=== PATIENT | male | born 1995 | race Caucasian/White ===

== ENCOUNTER 2024-03-03 10:39 | Outpatient (REF) | payer OTHER, SELFPAY ==
--- NOTE | ~2024-03-03 | XR_ITS ---
EXAMINATION: XR THORACIC SPINE CLINICAL INFORMATION: Pain in thoracic spine COMPARISON: None available. TECHNIQUE: AP and lateral views of thoracic spine FINDINGS: There is no fracture or bone destruction seen and the vertebral alignment is normal. There is no disc space narrowing. There is no abnormality of the paraspinal soft tissues. XR/XR thoracic spine 2V IMPRESSION: Unremarkable examination. Electronically signed by: Elsie Gama MD 03/19/2024 06:30 PM EDT
--- NOTE | ~2024-03-03 | XR_ITS ---
EXAMINATION: XR KNEE, RIGHT CLINICAL INFORMATION: 28-year-old male with pain in right knee COMPARISON: None available. TECHNIQUE: Four views of the right knee. FINDINGS: No fracture or joint effusion. Alignment is anatomic. Joint spaces are maintained. No abnormal soft tissue calcification. XR/XR knee RT 3V IMPRESSION: Normal right knee. Electronically signed by: Elsie Gama MD 03/19/2024 06:06 PM EDT
--- NOTE | ~2024-03-03 | XR_ITS ---
EXAMINATION: XR HIP, RIGHT CLINICAL INFORMATION: Pain in the right hip COMPARISON: None available. TECHNIQUE: Two views of the right hip. FINDINGS: No fracture. Alignment is anatomic. Hip joint space is maintained. Soft tissues are unremarkable. XR/XR hip RT min 2V IMPRESSION: Normal right hip. Electronically signed by: Elsie Gama MD 03/19/2024 06:29 PM EDT
--- NOTE | ~2024-03-03 | XR_ITS ---
EXAMINATION: XR SHOULDER, RIGHT CLINICAL INFORMATION: Pain in right shoulder COMPARISON: None available. TECHNIQUE: AP external rotation, Grashey, scapular Y, and axillary views of the right shoulder. FINDINGS: The bones and soft tissues are normal. No fracture. Glenohumeral and acromioclavicular alignment is anatomic with normal joint space. No abnormal soft tissue calcifications. XR/XR shoulder RT min 2V IMPRESSION: Normal right shoulder. Electronically signed by: Elsie Gama MD 03/19/2024 06:29 PM EDT RP
--- NOTE | ~2024-03-03 | XR_ITS ---
EXAMINATION: XR LUMBOSACRAL SPINE CLINICAL INFORMATION: Back pain COMPARISON: None available. TECHNIQUE: Three views of the lumbosacral spine. FINDINGS: The vertebral bodies and posterior elements are normal. There is straightening of lumbar lordosis likely result of muscle spasm. The disc spaces are preserved and the vertebral alignment is normal. The paraspinal soft tissues are normal. XR/XR lumbar spine 2-3V IMPRESSION: Muscle spasm Electronically signed by: Elsie Gama MD 03/19/2024 06:28 PM EDT
== END 2024-03-03 10:40 | disposition home or self-care (01) ==
LOC: HO.XRAY 10:39
PROVIDERS: PCP Family Medicine; Visit Provider Physician Assistant
DX: M25.551 Pain in right hip (principal); M25.561 Pain in right knee; M54.50 Low back pain, unspecified; M54.6 Pain in thoracic spine; M25.511 Pain in right shoulder; M25.50 Pain in unspecified joint; R14.0 Abdominal distension (gaseous); R10.11 Right upper quadrant pain; K13.0 Diseases of lips; G44.52 New daily persistent headache (NDPH)
CPT/HCPCS: 72070; 72100; 73030; 73502; 73562; 96127; 99202

== ENCOUNTER 2024-03-03 10:39 | Outpatient (AMB) | payer OTHER, SELFPAY ==
--- NOTE | 2024-03-03 10:41 | MHC.PC.OV ---
Vital Signs 03/03/24 10:45 Height 5 ft 5.55 in Weight 159 lb 8 oz BMI 26.1 BP 112/72 Blood Pressure Location Rt brachial Position Sitting Respiration 12 Pulse 67 Pulse Source Pulse Oximeter Temp 98.4 F Pulse Oximetry (%) 97 Oxygen Delivery Method Room Air Intake Visit Reasons: Est. Care Intake Note: New patient visit Allergies No Known Allergies Allergy (Verified 03/03/24 10:43) Medication List - Last Reconciled 03/03/24 by Pati Perdue PA-C No Known Home Meds Tobacco use date assessed: 03/03/24 Dental Screening Dental Screen Date: 03/03/24 Did you have a dental visit in the last 12 months?: Yes Did you have a dental problem in the last 6 months where you did not have access to dental care?: No Was dental information given to patient?: Patient has dentist HPI Est. Care HPI Details Patient is a 28-year-old male who presents today to [facility]. He is transferring from [place]. He has a hx of lumbar pain, thoracic pain and bilateral plantar fasctiitis. He brought in a list of concerns today. He states they are mostly musculoskeletal. He complains of right knee pain in the posterior aspect. He states that started about 4 months ago. He states the pain comes and goes. It does not seem to be improved by rest or stretching. He states the pain is sharp and stabbing. No injury. No swelling. No previous surgery. No instability. He sometimes gets pain on the lateral aspect of the right knee as well. He states if he does any cardio longer than 1 mile he gets the pain. Stretching is somewhat helpful but then the pain will linger the following day. It does not feel like it comes from the hip. He does report right hip popping sound. No pain with it. He complains of right shoulder cracking and popping at time. Pushups make it worse. No fam hx of lupus, RA, OA. No tick bites. He states that he wakes up feeling bloating. No difficulty swallowing, no diarrhea or constipation. He does get sometimes get RUQ pain after a meal. No hx of abdominal surgeries. No n/v. He complains of daily headaches. He states that the headaches are mostly in the front of his head. It happens as the day goes on. She does not wake up with them. He states that he sleeps through the night and gets a full 7 hours of sleep. He denies any caffeine changes. No new medications or supplements. He is well hydrated. This has been going on for the last 3-4 months. No dizziness with it. Overdue for an eye exam. 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 No numbness, tingling or weakness. No nausea or vomiting. Complains today of a lip lesion that has been there for about 3 or 4 months. It is unchanged in size. States that it is just a small bump on the right lower lip. [facility] Family History (Updated 03/03/24 @ 12:15 by Rebekah Oakley CMA) Father Diabetes Social History Housing: Apartment Patient Tobacco Use Status: Never used Tobacco e-Cigarette/Vaping Use: Never Used Second Hand Smoke Exposure: No service: Yes Current occupational status: employed Current occupation: [employer] Current occupational exposures/hazards: No Cognitive needs: No Hearing needs: No Vision needs: No Questionnaire PHQ-9 Over the last 2 weeks, how often have you been bothered by any of the following problems? 1. Little interest or pleasure in doing things: not at all 2. Feeling down, depressed, or hopeless: not at all 3. Trouble falling or staying asleep, or sleeping too much: not at all 4. Feeling tired or having little energy: several days 5. Poor appetite or overeating: not at all 6. Feeling bad about yourself - or that you are a failure or have let yourself or your family down: not at all 7. Trouble concentrating on things, such as reading the newspaper or watching television: not at all 8. Moving or speaking so slowly that other people could have noticed. Or the opposite - being so fidgety or restless that you have been moving around a lot more than usual: not at all 9. Thoughts that you would be better off or of hurting yourself in some way: not at all Total score: 1 Depression Screening Interpretation: Negative Depression Screening Done: Yes 59537 - PHQ-9 Billing: Yes Source: Developed by Drs. Eugenio Sim, Maria Fernanda Best, Xavier Abdi and colleagues, with an educational mae from [employer]. Thrive Questionnaire Date Thrive assessed: 03/03/24 I am a: Patient What is your living situation today?: I have a steady place to live Within the past 12 months, did the food you bought not last and you didn't have the money to get more?: Never true Within the past 12 months, did you worry whether your food would run out before you got money to buy more?: Never true Do you have trouble paying for medicines?: No Do you have trouble getting transportation to medical appointments?: No Do you have trouble paying your heating and electricity bill?: No Do you have trouble taking care of your child, family member or friend?: No Do you have trouble with day-to-day activities such as bathing, preparing meals, shopping, managing finances, etc.?: No Are you currently unemployed and looking for a job?: No Are you interested in more education?: Yes Please select the resources that you would like help with: None Currently or been in a relationship where the following occur: No concerns reported THRIVE Score: 0 AUDIT C Alcohol Use Questionnaire (AUDIT-C) 1. How often do you have a drink containing alcohol?: Monthly or less 2. How many drinks containing alcohol do you have on a typical day when you are drinking?: 1 or 2 3. How often do you have six or more drinks on one occasion?: Never Total Score: 1 LENNY-7 AMB Questionnaire LENNY-7 Date LENNY - 7 assessed: 03/03/24 Feeling nervous, anxious, or on edge: 0 = Not at all Not being able to stop or control worryin = Not at all Worrying too much about different things: 0 = Not at all Trouble relaxin = Several days Being so restless that it is hard to sit still: 0 = Not at all Feeling afraid as if something awful might happen: 0 = Not at all Source: Developed by Drs. Eugenio Sim, Maria Ferannda Best, Xavier Abdi and colleagues, with an educational mae from [employer]. LENNY-7 Assessment Billing LENNY-7 Assessment Tool: LENNY-7 Assessment 44495 Physical exam (Primary Care) Vital Signs: Last Vital Signs Temp 98.4 F 03/03/24 10:45 Pulse 67 03/03/24 10:45 Resp 12 03/03/24 10:45 BP 112/72 03/03/24 10:45 Pulse Ox 97 03/03/24 10:45 Oxygen Delivery Method Room Air 03/03/24 10:45 BMI result Body Mass Index 26.1 Tobacco/Smoking Status: Tobacco use Status Tobacco use date assessed 03/03/24 03/03/24 10:47 Patient Tobacco Use Status Never used Tobacco 03/03/24 10:47 e-Cigarette/Vaping Use Never Used 03/03/24 10:47 PHQ-9: PHQ-9 Score PHQ-9: Total score 1 03/03/24 12:13 Depression Screening Interpretation: Negative Thrive Assessment: Date of Thrive Assessment Date Thrive assessed 03/03/24 03/03/24 12:13 Currently or been in a relationship where the following occur: No concerns reported Const Orientation/consciousness: patient oriented x3 HENMT Ears: hearing grossly normal bilaterally and TM's normal bilaterally General nose exam: No nasal polyps present Face and sinus: Yes sinuses nontender Mouth: Normal oral and palatal mucosa present Eyes Pupils: Equal, round and reactive pupils present EOM: EOMs intact bilaterally Neck Neck: Yes full ROM and Yes no lymphadenopathy Thyroid: Thyroid normal Chest Chest palpation & inspection: normal inspection of the chest Resp Auscultation: clear to auscultation bilaterally Cardio Rate: regular rate Rhythm: regular rhythm Heart sounds: S1 normal heart sound present and S2 normal heart sound present Peripheral pulses: Peripheral pulses 2+ throughout GI Other: Soft, nontender Auscultation: normal bowel sounds Rectal Exam - Male: Yes deferred General: Yes no CVA tenderness Back/Spine/Pelvis Other: Nontender Back: no CVA tenderness Cervical Spine: cervical ROM normal Thoracic/Lumbar Spine: thoracic and lumbar spine normal to inspection, thoraco-lumbar ROM normal and straight leg raise negative bilaterally Skin Other: There is a flesh-colored, small, half a pea-sized raised lesion noted on the right lower lip. General skin exam: no rashes or lesions noted Neuro General: patient oriented x3, gait normal, CN's II-XI intact bilaterally and deep tendon reflexes 2+ bilaterally Cranial nerves: Yes Equal, round and reactive pupils present Motor exam (neuro): 5/5 motor strength present throughout Sensory Exam: double simultaneous stimulation for sensation normal Coordination: [id number] test normal and Romberg test negative Extrem General: Yes normal to inspection and Yes full ROM Psych Affect: normal affect Attitude: cooperative Thought process: Normal thought process present Thought content: Normal thought content present Insight: Good insight present (Psych) Judgement: Good judgement present (Psych) Assessment and Plan Assessment & Plan (1) Right hip pain: Code(s): M25.551 - Pain in right hip Plan: xrays ordered referral to chiro and ortho (2) Right knee pain: Code(s): M25.561 - Pain in right knee Plan: as above (3) Lumbar pain: Code(s): M54.50 - Low back pain, unspecified Plan: as above (4) Thoracic back pain: Code(s): M54.6 - Pain in thoracic spine Plan: as above (5) Right shoulder pain: Code(s): M25.511 - Pain in right shoulder Plan: as above (6) Polyarthralgia: Code(s): M25.50 - Pain in unspecified joint Plan: labs and imaging ordered will follow up pending results (7) Abdominal bloating: Code(s): R14.0 - Abdominal distension (gaseous) Plan: u/s ordered labs ordered abdominal exam reassuring. warning signs of abdominal pain that would require emergent medical treatment discussed (8) RUQ pain: Code(s): R10.11 - Right upper quadrant pain Plan: as above (9) Lip lesion: Code(s): K13.0 - Diseases of lips Plan: referral to derm (10) New daily persistent headache: Code(s): G44.52 - New daily persistent headache (NDPH) Plan: mri ordered advised eye exam Plan more than 75 mins were spent in [id number] time today discussing his list of concerns and treatment plan. Orders: Orders XR knee RT 3V Today M25.511 - Pain in right shoulder, M25.551 - Pain in right hip, M25.561 - Pain in right knee, M54.50 - Low back pain, unspecified, M54.6 - Pain in thoracic spine XR lumbar spine 2-3V Today M25.511 - Pain in right shoulder, M25.551 - Pain in right hip, M25.561 - Pain in right knee, M54.50 - Low back pain, unspecified, M54.6 - Pain in thoracic spine XR hip RT min 2V Today M25.511 - Pain in right shoulder, M25.551 - Pain in right hip, M25.561 - Pain in right knee, M54.50 - Low back pain, unspecified, M54.6 - Pain in thoracic spine XR thoracic spine 2V Today M25.511 - Pain in right shoulder, M25.551 - Pain in right hip, M25.561 - Pain in right knee, M54.50 - Low back pain, unspecified, M54.6 - Pain in thoracic spine RENÉ Reflex Titer and Pattern Today M25.50 - Pain in unspecified joint Erythrocyte Sedimentation Rate Today M25.50 - Pain in unspecified joint C Reactive Protein Today M25.50 - Pain in unspecified joint Lyme IgG/IgM w/reflex to WB Today M25.50 - Pain in unspecified joint Complete Blood Count Auto Diff Today M25.50 - Pain in unspecified joint Comprehensive Laura. Panel Fast Today M25.50 - Pain in unspecified joint TSH reflex Free T4 Today M25.50 - Pain in unspecified joint US abdomen complete Today R10.11 - Right upper quadrant pain, R14.0 - Abdominal distension (gaseous) MR head/brain wo con Today G44.52 - New daily persistent headache (NDPH) Ferritin Today G44.52 - New daily persistent headache (NDPH), R10.11 - Right upper quadrant pain, R14.0 - Abdominal distension (gaseous) XR shoulder RT min 2V Today M25.511 - Pain in right shoulder, M25.551 - Pain in right hip, M25.561 - Pain in right knee, M54.50 - Low back pain, unspecified, M54.6 - Pain in thoracic spine Endomysial IgA rflx Titer Today R10.11 - Right upper quadrant pain, R14.0 - Abdominal distension (gaseous) H pylori Ag Stool Today R10.11 - Right upper quadrant pain, R14.0 - Abdominal distension (gaseous) IRON PROFILE Today G44.52 - New daily persistent headache (NDPH), R10.11 - Right upper quadrant pain, R14.0 - Abdominal distension (gaseous) Vitamin B12 and Folate Today G44.52 - New daily persistent headache (NDPH), R10.11 - Right upper quadrant pain, R14.0 - Abdominal distension (gaseous) Magnesium Today G44.52 - New daily persistent headache (NDPH), R10.11 - Right upper quadrant pain, R14.0 - Abdominal distension (gaseous) Referrals Chiropractic Referral M25.511 - Pain in right shoulder, M25.551 - Pain in right hip, M25.561 - Pain in right knee, M54.50 - Low back pain, unspecified, M54.6 - Pain in thoracic spine Orthopedics Referral M25.551 - Pain in right hip, M25.561 - Pain in right knee Dermatology Referral K13.0 - Diseases of lips Coding Level of Care Code New Pt Level 5 (10867) Complex EM visit Add On G2211 Diagnoses Right hip pain M25.551 Right knee pain M25.561 Lumbar pain M54.50 Thoracic back pain M54.6 Right shoulder pain M25.511 Polyarthralgia M25.50 Abdominal bloating R14.0 RUQ pain R10.11 Lip lesion K13.0 New daily persistent headache G44.52 Additional Codes LENNY-7 Assessment Billing - LENNY-7 Assessment Tool: LENNY-7 Assessment [id number] ([id number])
[2024-03-03 10:45] VITALS: BP 112/72; PULSE 67; RESP 12; TEMP 36.9; O2SAT 97; BMI 26.1
== END 2024-03-03 11:47 | disposition home or self-care (01) ==
PROVIDERS: PCP Physician Assistant; Visit Provider Physician Assistant
DX: M25.551 Pain in right hip (principal); M25.561 Pain in right knee; M54.50 Low back pain, unspecified; M54.6 Pain in thoracic spine; M25.511 Pain in right shoulder; M25.50 Pain in unspecified joint; R14.0 Abdominal distension (gaseous); R10.11 Right upper quadrant pain; K13.0 Diseases of lips; G44.52 New daily persistent headache (NDPH)

== ENCOUNTER 2024-03-04 09:07 | Outpatient (REF) | payer OTHER, SELFPAY ==
[2024-03-04 11:20] LABS: MANUAL DIFF FLAG NO
[2024-03-04 11:37] LABS: Basophils Percent Auto 0.5 % (0-2); Eosinophils Absolute Auto 0.2 X10*3/uL (0.0-0.4); Eosinophils Percent Auto 2.9 % (0-4); Hematocrit 42.8 % (42.0-52.0); Hemoglobin 14.8 g/dl (14.0-18.0); Imm Gran Abs Auto 0.02 X10*3/uL (0.00-0.03); Imm Gran Pct Auto 0.3 % (0.0-0.4); Lymphocytes Absolute Auto 2.7 X10*3/uL (1.2-4.9); Lymphocytes Percent Auto 42.4 % (20-40); Mean Corpuscular HGB Conc 34.6 g/dl (31.0-36.0); Mean Corpuscular Hemoglobin 30.3 pg (27.0-33.0); Mean Corpuscular Volume 87.7 fL (80.0-98.0); Mean Platelet Volume 9.6 fL (9.4-12.4); Monocytes Absolute Auto 0.6 X10*3/uL (0.1-1.2); Monocytes Percent Auto 9.4 % (2-11); Neutrophils Absolute Auto 2.9 x10*3/uL (2.0-8.3); Neutrophils Percent Auto 44.5 % (45-73); Platelet Count 248 X10*3/uL (160-400); Red Blood Count 4.88 X10*6/uL (4.60-5.80); Red Cell Distribution Width 12.2 % (11.0-16.0); White Blood Count 6.5 X10*3/uL (4.8-10.8)
[2024-03-04 12:14] LABS: Alanine Aminotransferase 16 U/L (0-40); Albumin Level 4.5 g/dL (3.5-5.0); Alkaline Phosphatase 38 U/L (39-117); Anion Gap 10 (12-20); Aspartate Amino Transferase 16 U/L (5-37); Bilirubin Total 0.6 mg/dL (0.0-1.0); Blood Urea Nitrogen 15 mg/dL (9-16); C Reactive Protein < 0.10 mg/dL (< or = 0.50); Calcium 10.1 mg/dL (8.4-10.2); Carbon Dioxide 30 mmol/L (22-29); Chloride 105 mmol/L (96-108); Estimated Glomerular Filt Rate > 60; Ferritin 266 ng/mL (20-250); Glucose Fasting 89 mg/dL (60-99); Iron 92 mcg/dL (45-160); Magnesium 2.1 mg/dL (1.6-2.6); Percent Iron Saturation 34 % (15-50); Potassium 3.7 mmol/L (3.3-5.1); Sodium 141 mmol/L (135-145); TSH reflex Free T4 1.99 uIU/mL (0.32-4.0); Total Iron Binding Capacity 272 mcg/dL (228-428); Total Protein 7.3 g/dL (6.5-8.0); Unsaturated Iron Binding 180 ug/dL
[2024-03-04 12:19] LABS: Erythrocyte Sedimentation Rate 2 MM/HR (0-15)
[2024-03-04 12:23] LABS: Folate 11.4 ng/mL (> or = 4.0); Vitamin B12 435 pg/mL (200-900)
[2024-03-07 13:49] LABS: Anti Nuclear Antibody Screen NEGATIVE (NEGATIVE)
[2024-03-07 19:23] LABS: Lyme Abs Screen <0.90 index
[2024-03-10 22:43] LABS: Endomysial IgA Antibody Negative (Negative)
== END 2024-03-04 09:08 | disposition home or self-care (01) ==
LOC: HO.WFDLDS 09:07
PROVIDERS: Visit Provider Physician Assistant
DX: M25.50 Pain in unspecified joint (principal); R14.0 Abdominal distension (gaseous); R10.11 Right upper quadrant pain; G44.52 New daily persistent headache (NDPH)
CPT/HCPCS: 36415; 80053; 82607; 82728; 82746; 83540; 83735; 84443; 85025; 85652; 86038; 86140; 86231; 86617; 86618

== ENCOUNTER 2024-03-07 15:43 | Outpatient (REF) | payer OTHER, SELFPAY | END 2024-03-07 15:44 | disposition home or self-care (01) | LOC: HO.LNP 15:43 | PROVIDERS: Visit Provider Physician Assistant | DX: R14.0 Abdominal distension (gaseous) (principal); R10.11 Right upper quadrant pain | CPT/HCPCS: 87338 ==

== ENCOUNTER 2024-03-18 07:53 | Outpatient (REF) | payer OTHER, SELFPAY ==
--- NOTE | ~2024-03-18 | US_ITS ---
EXAMINATION: US ABDOMEN COMPLETE CLINICAL INFORMATION: Abdominal distention (gaseous). COMPARISON: None available. TECHNIQUE: Real-time imaging of the abdominal viscera. FINDINGS: PANCREAS: Normal. ABDOMINAL AORTA: The proximal, mid, and distal segments are normal in caliber. INFERIOR VENA CAVA: Visualized portions are normal. LIVER: Normal. The liver is normal in size. The liver contour is normal. Parenchymal echogenicity is normal. No focal hepatic lesion. There is no intrahepatic biliary duct dilatation seen. GALLBLADDER: Normal. The gallbladder is physiologically distended without evidence of stones, sludge, polyps, wall thickening or pericholecystic fluid. COMMON BILE DUCT: Normal in caliber measuring 0.2-0.5 cm in diameter. RIGHT KIDNEY: Normal. No hydronephrosis. No renal calculi or focal parenchymal lesions. The kidney measures 9.6 cm in maximum dimension. LEFT KIDNEY: Normal. No hydronephrosis. No renal calculi or focal parenchymal lesions. The kidney measures 10.8 cm in maximum dimension. SPLEEN: Normal. The spleen measures 11.1 cm in maximum dimension. FREE FLUID: None. US/US abdomen complete IMPRESSION: No abnormal findings Electronically signed by: Elsie Gama MD 03/19/2024 06:27 PM EDT
== END 2024-03-18 07:54 | disposition home or self-care (01) ==
LOC: HO.US 07:53
PROVIDERS: PCP Family Medicine; Visit Provider Physician Assistant
DX: R10.11 Right upper quadrant pain (principal); R14.0 Abdominal distension (gaseous)
CPT/HCPCS: 76700

== ENCOUNTER 2024-03-21 09:48 | Outpatient (AMB) | payer OTHER, SELFPAY ==
[2024-03-21 09:55] VITALS: BMI 26.5
--- NOTE | 2024-03-21 09:55 | MHC.OFFVIS ---
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 Patient reports that he has had intermittent right knee pain for about 4 months now the pain is felt in the posterior and lateral aspects of the knee. It does not seem to be improved by rest or stretching. He states the pain is sharp and stabbing. No injury. No swelling. No previous surgery. No instability. He states if he does any cardio longer than 1 mile he gets the pain. Stretching is somewhat helpful but then the pain will linger the following day. It does not feel like it comes from the hip. 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 He can do this but would like to be more active. He lifts weights but every time he runs he feels that his back sees is up and he becomes extremely stiff. He also has pain over the lateral aspect of his right knee. He denies injury. PFSH Family History Father Diabetes Social History Housing: Apartment Patient Tobacco Use Status: Never used Tobacco e-Cigarette/Vaping Use: Never Used Second Hand Smoke Exposure: No service: Yes Current occupational status: employed Current occupation: [employer] Current occupational exposures/hazards: No Cognitive needs: No Hearing needs: No Vision needs: No Physical Exam Vital Signs: BMI result Body Mass Index 26.5 Extrem Other: On physical exam he has right hamstring tightness compared to the left and tenderness to palpation over Gerdy's tubercle. He has a negative Paula's test. Right knee with full range of motion and ligamentously stable exam with no effusion and no tenderness to palpation. Mild bilateral patellar tilt Results Reviewed Results Reviewed: Radiographs of his right knee are normal with mild patellar tilting Assessment & Plan Assessment & Plan (1) Hamstring tightness of right lower extremity: Code(s): M62.89 - Other specified disorders of muscle Category: Medical Plan: This is a 28-year-old otherwise healthy active male in the with right hamstring tightness and iliotibial band discomfort distally. His back spasms when he runs and I recommend a course of physical therapy. I recommend Henny our therapist here to work with him to assess is tightness on the right and some core instability. I also recommend that he brought in his workout program. I discussed this with him. He is amenable to the plan and we will follow up accordingly. Orders: Orders PT Evaluation and Treatment Today M62.89 - Other specified disorders of muscle Coding Level of Care Code New Pt Level 3 (65642) Diagnoses Hamstring tightness of right lower extremity M62.89
== END 2024-03-21 10:29 | disposition home or self-care (01) ==
PROVIDERS: PCP Family Medicine; Visit Provider Orthopaedic Surgery
DX: M25.561 Pain in right knee (principal); M25.551 Pain in right hip; M62.89 Other specified disorders of muscle
CPT/HCPCS: 99203

== ENCOUNTER → 2024-03-21 09:48 | Outpatient (BNVA) | payer OTHER, SELFPAY | PROVIDERS: PCP Family Medicine; Visit Provider Orthopaedic Surgery | DX: M25.561 Pain in right knee (principal); M25.551 Pain in right hip; M62.89 Other specified disorders of muscle; Z91.85 Personal history of military service | CPT/HCPCS: 99202 ==

== ENCOUNTER → 2024-03-24 07:24 | Outpatient (BNV) | payer OTHER, SELFPAY | PROVIDERS: PCP Family Medicine; Visit Provider Radiology Diagnostic Radiology | DX: G44.52 New daily persistent headache (NDPH) (principal) | CPT/HCPCS: 70551 ==

== ENCOUNTER 2024-03-24 07:26 | Outpatient (REF) | payer OTHER, SELFPAY ==
--- NOTE | ~2024-03-24 | MR_ITS ---
EXAMINATION: MR BRAIN WITHOUT CONTRAST CLINICAL INFORMATION: New vaguely persistent headache. COMPARISON: None available. TECHNIQUE: MRI of the brain was obtained using routine sequences without contrast. FINDINGS: Submitted for interpretation on May 24, 2024. No restricted diffusion. No acute intracranial hemorrhage, mass effect, midline shift, hydrocephalus or herniation. Cleaning-white matter differentiation is normal. Posterior cranial fossa contents demonstrated no acute intracranial hemorrhage or mass effect. Sellar/suprasellar region is normal. Craniocervical junction is intact and normal. Flow-void signal within the main cerebral vessels is normal. Midline structures are normal. MR/MR head/brain wo con IMPRESSION: No acute or structural brain abnormality. Electronically signed by: Ventura Bowser MD 05/24/2024 12:08 PM [facility]
[2024-03-24 09:28] LABS: Ferritin 219 ng/mL (20-250)
== END 2024-03-24 07:27 | disposition home or self-care (01) ==
LOC: HO.MRI 07:26
PROVIDERS: PCP Family Medicine; Visit Provider Physician Assistant
DX: G44.52 New daily persistent headache (NDPH) (principal); R79.89 Other specified abnormal findings of blood chemistry
CPT/HCPCS: 36415; 70551; 82728

== ENCOUNTER 2024-04-06 15:27 | Outpatient (AMB) | payer OTHER, SELFPAY ==
--- NOTE | 2024-04-06 15:33 | A.OFFPC_ITS ---
Vital Signs 04/06/24 15:45 Height 5 ft 5 in Weight 161 lb BMI 26.8 BP 102/66 Blood Pressure Location Rt brachial Position Sitting Pulse 67 Pulse Source Pulse Oximeter Pulse Oximetry (%) 97 Oxygen Delivery Method Room Air Intake Visit Reasons: cpe and labs Intake Note: Follow up imaging and labs [employer] Supervisor Required: No Allergies No Known Allergies Allergy (Verified 04/06/24 15:40) Medication List - Last Reconciled 04/06/24 by Pati Perdue PA-C No Known Home Meds Tobacco use date assessed: 03/03/24 Dental Screening Dental Screen Date: 03/03/24 HPI cpe and labs HPI Details Patient is a 28-year-old male who presents today for a follow up. Musculoskeletal: Followed with ortho. Is planning to start physical therapy. He has been going to chiropractic therapy and states that it has been helpful. GI: States that his abdominal pain is getting better. It is not every day and it is much more mild. He did have labs and an ultrasound which were normal. He is referred to GI and waiting for an appointment. He has not tried any diet changes yet. No difficulty swallowing, no diarrhea or constipation. He does get sometimes get RUQ pain after a meal. No hx of abdominal surgeries. No n/v. Neuro: He did have an MRI which is not yet back. He states that his headaches are a bit better now and less frequent. They are only happening about once a week. It seems to be in the front of his head. He is still overdue for an eye exam and states that he needs a referral. PFSH Family History Father Diabetes Social History Housing: Apartment Patient Tobacco Use Status: Never used Tobacco e-Cigarette/Vaping Use: Never Used Second Hand Smoke Exposure: No service: Yes Current occupational status: employed Current occupation: [employer] Current occupational exposures/hazards: No Cognitive needs: No Hearing needs: No Vision needs: No Questionnaire Thrive Questionnaire Date Thrive assessed: 03/03/24 I am a: Patient What is your living situation today?: I have a steady place to live Within the past 12 months, did the food you bought not last and you didn't have the money to get more?: Never true Within the past 12 months, did you worry whether your food would run out before you got money to buy more?: Never true Do you have trouble paying for medicines?: No Do you have trouble getting transportation to medical appointments?: No Do you have trouble paying your heating and electricity bill?: No Do you have trouble taking care of your child, family member or friend?: No Do you have trouble with day-to-day activities such as bathing, preparing meals, shopping, managing finances, etc.?: No Are you currently unemployed and looking for a job?: No Are you interested in more education?: Yes Please select the resources that you would like help with: None Currently or been in a relationship where the following occur: No concerns reported THRIVE Score: 0 LENNY-7 AMB Questionnaire LENNY-7 Date LENNY - 7 assessed: 03/03/24 Becoming easily annoyed or irritable: 0 = Not at all Source: Developed by Drs. Eugenio Sim, Maria Fernanda Best, Xavier Abdi and colleagues, with an educational mae from [employer] [facility]. Physical exam (Primary Care) Vital Signs: Last Vital Signs Pulse 67 04/06/24 15:45 BP 102/66 04/06/24 15:45 Pulse Ox 97 04/06/24 15:45 Oxygen Delivery Method Room Air 04/06/24 15:45 BMI result Body Mass Index 26.8 Tobacco/Smoking Status: Tobacco use Status Tobacco use date assessed 03/03/24 04/06/24 15:33 Patient Tobacco Use Status Never used Tobacco 04/06/24 15:33 e-Cigarette/Vaping Use Never Used 04/06/24 15:33 Thrive Assessment: Date of Thrive Assessment Date Thrive assessed 03/03/24 04/06/24 15:33 Currently or been in a relationship where the following occur: No concerns reported Const Orientation/consciousness: patient oriented x3 HENMT Ears: hearing grossly normal bilaterally Neck Thyroid: Thyroid normal Lymphatic: no lymphadenopathy noted Resp Auscultation: clear to auscultation bilaterally Cardio Rate: regular rate Rhythm: regular rhythm Heart sounds: S1 normal heart sound present and S2 normal heart sound present GI Inspection: Yes normal to inspection Palpation (GI): Soft to palpation and Other GI palpation findings present (nontender, no cva tenderness) Auscultation: normoactive bowel sounds Rectal Exam - Male: Yes deferred Skin General skin exam: no rashes or lesions noted Neuro General: patient oriented x3, gait normal and no focal motor deficits Coding Level of Care Code Est Pt Level 4 (15222) Diagnoses New daily persistent headache G44.52 RUQ pain R10.11 Polyarthralgia M25.50 Assessment & Plan Assessment & Plan (1) New daily persistent headache: Code(s): G44.52 - New daily persistent headache (NDPH) Category: Medical Plan: Improved. Referral to Ophthalmology placed. We will follow up pending MRI. (2) RUQ pain: Code(s): R10.11 - Right upper quadrant pain Category: Medical Plan: Improved. Negative ultrasound and labs. He is going to try an elimination diet. Has follow up arranged with GI. (3) Polyarthralgia: Code(s): M25.50 - Pain in unspecified joint Category: Medical Plan: Starting physical therapy. Has seen ortho and point of care specialist. Orders: Referrals Ophthalmology Referral G44.52 - New daily persistent headache (NDPH), H53.9 - Unspecified visual disturbance
[2024-04-06 15:45] VITALS: BP 102/66; PULSE 67; O2SAT 97; BMI 26.8
== END 2024-04-06 17:05 ==
PROVIDERS: PCP Physician Assistant; Visit Provider Physician Assistant
DX: G44.52 New daily persistent headache (NDPH) (principal); R10.11 Right upper quadrant pain; M25.50 Pain in unspecified joint

== ENCOUNTER → 2024-04-06 15:27 | Outpatient (BNVA) | payer OTHER, SELFPAY | PROVIDERS: PCP Internal Medicine; Visit Provider Physician Assistant | DX: G44.52 New daily persistent headache (NDPH) (principal); R10.11 Right upper quadrant pain; M25.50 Pain in unspecified joint | CPT/HCPCS: 99212 ==

== ENCOUNTER 2024-09-15 11:58 | Outpatient (RCR) | payer OTHER, SELFPAY ==
--- NOTE | 2024-05-09 15:37 | MHC.PT.EP ---
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 HE PERFORMS GYM WORKS OUT REGULARLY AND NOTES HE CAN RUN APPROX 1 MILE PRIOR TO ONSET OF DISCOMFORT. THE Pt HAS DECR POSTURAL AWARENESS, (+) LUMBOPELVIC ASYMM W LLI EFFECT- TIGHTER Rt ITB/ HS AND POSTERIOR CHAIN RESTRICTION. HE DENIES RADICULAR SXS. HE HAS MILD STRENGTH DEFICITS IN LUPE HIP ROTATORS. THE Pt IS VERY MOTIVATED FOR PT AND ADDRESSING THE ABOVE FINDINGS , ULTIMATELY TO RESUME RUNNING/ HIGHER LEVEL TASKS W/O SXS IN LB AND HIPS. Frequency and Duration: The patient will be seen 2 x WK x 4 WKS Short Term Goals: *Pt INDEP FOAM ROLLING *DECR LBP AND Rt LAT KNEE PAIN * INITIATE HEP *INCREASE HIP FLEXIBILITY AND LUMBOPELVIC SYMMETRY *DECR LBP AND Rt LAT KNEE SXS TO 2-3/10 AT MAX Balance Sheet Analyst Goals: *INDEP HEP AND SELF SX MGMT TECHN *Pt RESUME REG ADLs/ EXERCISE ROUTINE -> IMPROVED LEFI (AT EVAL 59/80) Treatment Plan: Modalities to reduce pain, spasms and effusion. Manual therapy to restore motion and function. Therapeutic exercise to improve strength and flexibility. Neuromuscular re-education for posture and balance. Therapeutic activities to return to functional activities of daily living. Electronically signed by: MENG HEDRICK,PT Please sign and return to therapist. Thank you for your referral.
--- NOTE | 2024-09-16 11:50 | MHC.PT.DC ---
[facility] [place] Office [place] Office [place] Office [address] Reina De La Paz [address] [phone] F: [phone] F: [phone] F: [phone] F: [phone] Physical Therapy Discharge Report Diagnosis: HAMSTRING TIGHTNESS OF RIGHT LE/ LBP, Lt MEDIAL KNEE Date of Surgery: Date of Evaluation: 05/09/24 Date of Discharge: 09/16/24 Treatments to Date: 26 Cancellations to Date: 0 No Shows to Date: 0 Discharge Status: Achieved Goals Improved Function Independent with HEP Discharge Summary: CHRISTY HAS MADE GOOD PROGRESS IN PT, ADDRESSING LBP/ HIP / KNEE PAIN. HE CURRENTLY NOTES Rt LATERAL KNEE Jt SORENESS/ ACHE, W RUNNNING. THE Pt HAS MET HIS PT GOALS-> HE IS INDEP W HIS HEP, WFL STRENGTH AND SYMMETRY IN LUMBOPELVIC -> PROX LEs, GOOD SQUAT MECHANICS, AND OVERALL SX RESOLUTION. IN REGARDS TO HIS RESIDUAL Rt LAT KNEE SXS, WE HAVE ADDRESSED W IASTM, KT AND MCGRATH TAPE FOR PFPS, AND SPECIFIC SOFT TISSUE MOB. CHRISTY IS READY AT THIS TIME TO CONT W HIS HEP AND TO CONT TO FOLLOW THE RETURN TO RUNNING PROGRAM ISSUED PREVIOUSLY IN PT. Electronically signed by: MENG HEDRICK,PT Please sign and return to therapist. Thank you for your referral.
== END 2024-09-16 11:51 | disposition home or self-care (01) ==
LOC: HO.PT 11:58
PROVIDERS: PCP Family Medicine; Visit Provider Orthopaedic Surgery
DX: M62.89 Other specified disorders of muscle (principal)
CPT/HCPCS: 97110; 97112; 97140; 97162; 97530

== ENCOUNTER 2024-10-27 09:05 | Outpatient (AMB) | payer OTHER, SELFPAY ==
[2024-10-27 09:11] VITALS: BMI 26.8
--- NOTE | 2024-10-27 09:11 | A.OFFVIS_ITS ---
Vital Signs 10/27/24 09:11 Height 5 ft 5 in Weight 161 lb BMI 26.8 Intake Visit Reasons: OV- Right knee pain s/p PT Intake Note: Isaiah is a 28 year old male who presents today for a follow up of his right knee pain. At his last visit it was discussed that he has right hamstring tightness and distal iliotibial band discomfort. He is also a runner and has had back spasm. He was sent for Physical Therapy. Patient reports that his lower back, hip and knee pain have all improved but he continues to feel right lateral knee pain while running. His pain is focused in the center of the patella, and lateral aspet of the right knee - this pain is only felt with running after about 2 or more miles. The pain is felt upon leg extension while running and remains after running. Allergies No Known Allergies Allergy (Verified 04/06/24 15:40) HPI HPI OV- Right knee pain s/p PT: Details: Isaiah is a 28 year old male who presents today for a follow up of his right knee pain. At his last visit it was discussed that he has right hamstring tig htness and distal iliotibial band discomfort. He is also a runner and has had back spasm. He was sent for Physical Therapy. Patient reports that his lower back, hip and knee pain have all improved but he continues to feel right lateral knee pain while running. His pain is focused in the center of the patella, and lateral aspet of the right knee - this pain is only felt with running after about 2 or more miles. The pain is felt upon leg extension while running and remains after running. PFSH Family History Father Diabetes Social History Housing: Apartment Patient Tobacco Use Status: Never used Tobacco e-Cigarette/Vaping Use: Never Used Second Hand Smoke Exposure: No service: Yes Current occupational status: employed Current occupation: [employer] Current occupational exposures/hazards: No Cognitive needs: No Hearing needs: No Vision needs: No Physical Exam Vital Signs: BMI result Body Mass Index 26.8 Extrem Other: Improved hamstring flexibility and full range motion of the right knee. There is mild lateral patellar tilting and a tight lateral iliotibial band. Assessment & Plan Assessment & Plan (1) Patellofemoral maltracking: Code(s): M22.2X9 - Patellofemoral disorders, unspecified knee Category: Medical Plan: Normal radiographs and a healthy young man who continues to have right knee pain while running. He has improved dramatically with physical therapy but still has anterior knee pain with extended running. I talked about his workout regimen. He may want to consider minimizing legs but I do also think he has a maltracking problem and would benefit from further imaging with an MRI. Orders: Orders MR knee RT wo con Today M22.2X9 - Patellofemoral disorders, unspecified knee Coding Level of Care Code Est Pt Level 4 (95947) Diagnoses Patellofemoral maltracking M22.2X9
--- OUTSIDE RECORDS SUMMARY | 2024-10-27 09:39 | XMS_ITS | Continuity of Care Document ---
Author Name [facility] Organization [facility] Care Team Providers Care Millwright Instructor Name Role Phone [facility] Unavailable Unavailable Problems Combined list of problems from Department of [facility] and Veterans Affairs facilities. It does not include entries that were removed or entered in error. Problem Status Onset Date Problem Type Date of Resolution Comments Source Encounter for issue of other medical certificate Active 01/22/2024 Diagnosis 0035C-[id number] [place] Encounter for other procedures for purposes other than remedying health state Active Condition [facility] LBP - Low back pain Active Condition Unknown Organization Plantar fasciitis of both feet Active Condition [address] [place] [address] Verruca vulgaris Active Condition [address] [place] [address] Medications Combined list of outpatient medications from Department of [facility] and [facility] facilities.Medications provided include 1) outpatient medications from the last 15 months, and 2) patient-reported medications. Medication Details Route Status Patient Instructions Prescription Expires Prescription Number Last Dispense Date Ordering Provider Order Date Order Qty Source Flonase 50 mcg/inh nasal spray 50 mcg, Nostril- Both, BID, # 16 g, 5 total refill(s ), Maintena nce, Pharmacy : [facility] Nostri l-Both (into the nose) Ordered 3 2022 16.0 1974C-N [address] ibuprofen 800 mg oral tablet 1 tab(s), Oral, TID, # 90 tab(s), 0 total refill(s ), Acute, 03/07/21 2:00:00 AM CDT, Pharmacy : [facility] Oral (given by mouth) Complet ed 03/07/2021 1 2020 90.0 1417C-2 2 [facility] [place] PreviDent 5000 Plus topical paste See Instruct ions, Apply 1 thin ribbon to toothbru sh. Dillon thorough ly twice a day. Do not rinse, eat or drink for 30 minutes. , # 51 g, 3 total refill(s ), Maintena nce, Pharmacy : [facility] Ordered 3 2022 51.0 1417C-2 2 [facility] [place] ZyrTEC 10 mg oral tablet 1 tab(s), Oral, Daily, PRN allergy symptoms , # 90 tab(s), 3 total refill(s ), [facility], Pharmacy : [facility] Oral (given by mouth) Discont inued 10/02/20222022 [address] [place] [address] ZyrTEC 10 mg oral tablet 1 tab(s), Oral, Daily, # 30 tab(s), 3 total refill(s ), [facility], Pharmacy : [facility] Oral (given by mouth) Ordered 3 [address] [place] [address] Allergies, Adverse Reactions, Alerts Combined list of allergies from Department of Defense and Veterans Affairs facilities. It does not include entries that were removed or entered in error. Substance Category Reaction Severity Reaction type Status Date Reported Comments Source No Known Allergies Drug allergy (disorder) active 04/11/2015 [facility] Immunizations Combined list of available immunizations from the Department of Defense and Veterans Affairs facilities. Immunization Series Date Given Administered By Site Reaction Lot Number CVX Code Drug Bird Keeper Status Comments Source influenza virus vaccine, inactivated 2021 RADHANMHOANA Danielson tomy, left (delt oid) [id number] 158 [employer] complet ed influenza virus vaccine, inactivat ed 03/31/[address] influenza virus vaccine, inactivated 2020 BRANDONABRADL PRASHANT Danielson tomy, left (delt oid) [id number] 150 GlaxoSmithKli sc complet ed influenza virus vaccine, inactivat ed 04/18/[address] COVID Vaccine Pfizer 2020 EBENEZER Danielson tomy, left (delt oid) [id number] PFIZER complet ed COVID Vaccine Pfizer 09/05/20 Given 0024C-N [facility] on COVID Vaccine Pfizer 2020 ELVA Danielson tomy, left (delt oid) [id number] PFIZER complet ed COVID Vaccine Pfizer 08/15/20 Given 1973C-N HCP 22 [facility] influenza virus vaccine, inactivated 2019 JORDAN Danielson tomy, left (delt oid) [id number] 158 Seqirus, A [employer] complet ed influenza virus vaccine, inactivat ed 05/03/20 Given 1973C-N HCP 22 [facility] influenza, injectable, quadrivalent- pf 2018 [id number] 150 Se[employer]irus complet ed influenza , injectabl e, quadrival ent-pf 04/12/19 Given Ambulat ory Pharmac y Influenza, injectable, quadrivalent, preservative free 0 2018 [id number] 150 Seqirus (SEQ) comple t ed Influenza , injectabl e, quadrival ent, preservat federico free DoD rabies vaccine, purified chick embryo 2018 Body, whole [id number] complet ed rabies vaccine, purified chick embryo 10/12/18 Given Ambulat ory Pharmac y rabies vaccine, IM 2018 [id number] 175 Sclavo, Inc. complet ed rabies vaccine, IM 10/12/18 Given Ambulat ory Pharmac y Human Rabies vaccine from human diploid cell culture 3 2018 [id number] 175 Sclavo (SCL) complet ed Human Rabies vaccine from human diploid cell culture DoD Human rabies vaccine from Chicken fibroblast culture 3 2018 VALERIA PETER [id number] 176 Transcribed (TRS) complet ed Human rabies vaccine from Chicken fibroblas t culture DoD rabies vaccine, IM 2018 [id number] 175 Sclavo, Inc. complet ed rabies vaccine, IM 10/02/18 Given Ambulat ory Pharmac y Human Rabies vaccine from human diploid cell culture 2 2018 [id number] 175 Sclavo (SCL) complet ed Human Rabies vaccine from human diploid cell culture DoD rabies vaccine, purified chick embryo 2018 zzLef t Arm [id number] 176 complet ed rabies vaccine, purified chick embryo 09/14/18 Given Ambulat ory Pharmac y Human rabies vaccine from Chicken fibroblast culture 2 2018 VALERIA PETER [id number] 176 Transcribed (TRS) complet ed Human rabies vaccine from Chicken fibroblas t culture DoD rabies vaccine, IM 2018 [id number] 175 Sclavo, Inc. complet ed rabies vaccine, IM 09/06/18 Given Ambulat ory Pharmac y rabies vaccine, purified chick embryo 2018 zzLef t Arm [id number] 176 complet ed rabies vaccine, purified chick embryo 09/06/18 Given Ambulat ory Pharmac y Human Rabies vaccine from human diploid cell culture 1 2018 [id number] 175 Sclavo (SCL) complet ed Human Rabies vaccine from human diploid cell culture DoD Human rabies vaccine from Chicken fibroblast culture 1 2018 VALERIA PETER [id number] 176 Transcribed (TRS) complet ed Human rabies vaccine from Chicken fibroblas t culture DoD anthrax vaccine 2016 zzLef t Arm [id number] Emergent [employer] complet ed anthrax vaccine 08/05/16 Given Ambulat ory Pharmac y anthrax vaccine 1 2016 JACKLYN MARTINEZ N [id number] 24 [employer] [place] (MIP) complet ed anthrax vaccine DoD tuberculin purified protein derivative 2016 zzLef t Arm [id number] Unknown complet ed tuberculi n purified protein derivativ e 06/19/16 Given Ambulat ory Pharmac y tuberculin skin test; purified protein derivative solution, intradermal 1 2016 JACKLYN MARTINEZ N [id number] 96 Other (OTH) complet ed tuberculi n skin test; purified protein derivativ e solution, intraderm al DoD influenza, injectable, quadrivalent- pf 2015 zzRig ht Arm [id number] 150 GlaxoSmithKli ne complet ed influenza , injectabl e, quadrival ent-pf 04/10/16 Given Ambulat ory Pharmac y Influenza, injectable, quadrivalent, preservative free 1 2015 Unknown, Provider [id number] 150 SmithKline (SKB) complet ed Influenza , injectabl e, quadrival ent, preservat federico free DoD influenza, injectable, quadrivalent- pf 2015 [id number] 150 GlaxoSmithKli ne complet ed influenza , injectabl e, quadrival ent-pf 04/04/16 Given Ambulat ory Pharmac y Influenza, injectable, quadrivalent, preservative free 0 2015 [id number] 150 SmithKline (SKB) complet ed Influenza , injectabl e, quadrival ent, preservat federico free DoD hepatitis A-hepatitis B vaccine 2015 [id number] 104 GlaxoSmithKli ne complet ed hepatitis A-hepatit is B vaccine 10/02/15 Given Ambulat ory Pharmac y typhoid Vi capsular polysaccharid e vac 2015 [id number] 101 sanofi pasteur complet ed typhoid Vi capsular polysacch aride vac 10/02/15 Given Ambulat ory Pharmac y typhoid Vi capsular polysaccharid e vaccine 1 2015 L1255 101 Sanofi Pasteur (PMC) complet ed typhoid Vi capsular polysacch aride vaccine DoD hepatitis A and hepatitis B vaccine 3 2015 [id number] 104 [facility] ([facility]) complet ed hepatitis A and hepatitis B vaccine DoD varicella virus vaccine 2014 [id number] 21 Merck & Company Inc complet ed varicella virus vaccine 06/11/15 Given Ambulat ory Pharmac y measles/mumps /rubella virus vaccine 2014 [id number] 03 Merck & Company Inc complet ed measles/m umps/rube lla virus vaccine 06/11/15 Given Ambulat ory Pharmac y yellow fever vaccine 2014 [id number] 37 sanofi pasteur complet ed yellow fever vaccine 06/11/15 Given Ambulat ory Pharmac y measles, mumps and rubella virus vaccine 0 2014 [id number] 03 Merck (MSD) complet ed measles, mumps and rubella virus vaccine DoD varicella virus vaccine 2 2014 [id number] 21 Merck (MSD) complet ed varicella virus vaccine DoD yellow fever vaccine 0 2014 [id number] 37 Sanofi Pasteur (PMC) complet ed yellow fever vaccine DoD hepatitis A-hepatitis B vaccine 2014 [id number] 104 GlaxoSmithKli ne complet ed hepatitis A-hepatit is B vaccine 05/11/15 Given Ambulat ory Pharmac y poliovirus vaccine, inactivated 2014 O9301-6 10 sanofi pasteur complet ed polioviru s vaccine, inactivat ed 05/11/15 Given Ambulat ory Pharmac y poliovirus vaccine, inactivated 0 2014 P2949-9 10 Sanofi Pasteur (PMC) complet ed polioviru s vaccine, inactivat ed DoD hepatitis A and hepatitis B vaccine 2 2014 [id number] 104 [facility] (SKB) complet ed hepatitis A and hepatitis B vaccine DoD varicella virus vaccine 2014 [id number] 21 Merck & Company Inc complet ed varicella virus vaccine 04/19/15 Given Ambulat ory Pharmac y measles/mumps /rubella virus vaccine 2014 [id number] 03 Merck & Company Inc complet ed measles/m umps/rube lla virus vaccine 04/19/15 Given Ambulat ory Pharmac y measles, mumps and rubella virus vaccine 0 2014 [id number] 03 Merck (MSD) complet ed measles, mumps and rubella virus vaccine DoD varicella virus vaccine 1 2014 [id number] 21 Merck (MSD) complet ed varicella virus vaccine DoD tetanus, diphtheria, acellular pertu is 2014 [id number] 115 sanofi pasteur complet ed tetanus, diphtheri a, acellular pertussis 04/11/15 Given Ambulat ory Pharmac y hepatitis A-hepatitis B vaccine 2014 [id number] 104 Wave Technology SolutionsKli sc complet ed hepatitis A-hepatit is B vaccine 04/11/15 Given Ambulat ory Pharmac y pneumococcal polysaccharid e, 23 valent 2014 [id number] 33 Merck & Company Inc complet ed pneumococ peter polysacch aride, 23 valent 04/11/15 Given Ambulat ory Pharmac y influenza, injectable, quadrivalent- pf 2014 [id number] 150 Knokmmune Inc comple t ed influenza , injectabl e, quadrival ent-pf 04/11/15 Given Ambulat ory Pharmac y adenovirus vaccine, live 2014 [id number] 5 143 Teva Pharmaceutica complet ed adenoviru s vaccine, live 04/11/15 Given Ambulat ory Pharmac y meningococcal A,C,Y,W-135 (MCV4P) 2014 [id number] 114 sanofi pasteur complet ed meningoco ccal A,C,Y,W-1 35 (MCV4P) 04/11/15 Given Ambulat ory Pharmac y pneumococcal polysaccharid e vaccine, 23 valent 0 2014 [id number] 33 Merck (MSD) complet ed pneumococ peter polysacch aride vaccine, 23 valent DoD hepatitis A and hepatitis B vaccine 1 2014 [id number] 104 [employer] (SKB) complet ed hepatitis A and hepatitis B vaccine DoD meningococcal polysaccharid e (groups A, C, Y and W-135) diphtheria toxoid conjugate vaccine (MCV4P) 0 2014 [id number] 114 Sanofi Pasteur ([facility]) complet ed meningoco ccal polysacch aride (groups A, C, Y and W-135) diphtheri a toxoid conjugate vaccine (MCV4P) DoD tetanus toxoid, reduced diphtheria toxoid, and acellular pertu is vaccine, adsorbed 0 2014 [id number] 115 Sanofi Pasteur (PMC) complet ed tetanus toxoid, reduced diphtheri a toxoid, and acellular pertussis vaccine, adsorbed DoD Adenovirus, type 4 and type 7, live, oral 0 2014 [id number] 5 143 Comunitae (BRR) complet ed Adenoviru s, type 4 and type 7, live, oral DoD Influenza, injectable, quadrivalent, preservative free 0 2014 [id number] 150 [employer]. (MED) complet ed Influenza , injectabl e, quadrival ent, preservat federico free DoD Results Combined list of recent chemistry, hematology and other laboratory results from Department of Defense and Veterans Affairs, ranging from 15 months to all on record, depending upon the facility. Order Name Results Value Reference Range Date Interpretation Specimen Comments Source Infectiou s Disease Source of Test.LC Gen Force Test (02/25/23 11:56 AM) [facility] Infectiou s Disease HIV-1/2 AG/AB 4G CDD LC NEGATIVE 02/25 Result Comment: Performed At: [facility] [address] [facility] [address] [place] [address] MALINA CHRISTY PHD Ph:[phone] 63 [facility] Molecular Infectiou s Disease Reason for Test? Screening (07/15/21 12:24 PM) 07/15 [facility] Molecular Infectiou s Disease SARS-CoV -2, KAYLEN LC Detected 07/15 A Result Comment: Patients who have a positive COVID-19 test result may now have treatment options. Treatment options are available for patients with mild to moderate symptoms and for hospitalize d patients. Visit our website at [email or web address] for resources and information . This nucleic acid amplificati on test was developed and its performance characteris tics determined by [employer] [facility]. Nucleic acid amplificati on tests include RT- PCR and TMA. This test has not been FDA cleared or approved. This test has been authorized by FDA under an Emergency Use Authorizati on (EUA). This test is only authorized for the duration of time the declaration that circumstanc es exist justifying the authorizati on of the emergency use of in vitro diagnostic tests for detection of SARS-CoV-2 virus and/or diagnosis of COVID-19 infection under section 564(b)(1) of the Act, 21 U.S.C. 360bbb-3(b) (1), unless the authorizati on is terminated or revoked sooner. When diagnostic testing is negative, the possibility of a false negative result should be considered in the context of a patient's recent exposures and the presence of clinical signs and symptoms consistent with COVID-19. An individual without symptoms of COVID-19 and who is not shedding SARS-CoV-2 virus would expect to have a negative (not detected) result in this assay. Performed At: [address] [facility] [address] [facility], [place] [id number] Rodolfo Lamaspayton Pat [facility] Ph:[phone] [address] [place] [address] Infectiou s Disease Source of Test.LC Phys Exam (06/26/21 3:08 PM) 06/[address] [place] [address] [facility] Disease HIV-1/2 AG/AB 4G CDD LC NEGATIVE 06/26 Result Comment: Performed At: 1 [facility] [address] [facility] [address] [place] [address] MALINA RAYMONDN PHD Ph:[phone] [address] [place] [address] Vital Signs Combined list of inpatient and outpatient Vital Signs from Department of Defense and Veterans Affairs, ranging from 12 months to all on record, depending upon the facility. Vital Sign Value Date Comments Source Blood Pressure Manual Automatic 02/26/2023 15:52:[address] [place] [address] [facility] Mean Arterial Pressure, Calc 86 mm[Hg] 02/26/2023 15:52:00 [facility] Systolic Blood Pressure 127 mm[Hg] 02/27/20 15:52:00 [facility] Diastolic Blood Pressure 66 mm[Hg] 023 15:52:00 [facility] Peripheral Pulse Rate 59 bpm 02/26/2023 15:52:00 [facility] Respiratory Rate 16 br/min 02/26/2023 15:52:00 [facility] BP Site Left arm 02/26/2023 15:52:00 [facility] Temperature Tympanic 36.8 Doris 02/26/2023 15:52:00 [facility] Mean Arterial Pressure, Calc 94 mm[Hg] 07/03/2021 17:31:00 [facility] Systolic Blood Pressure 134 mm[Hg] 07/03/19 17:31:00 [facility] Diastolic Blood Pressure 74 mm[Hg] 022 17:31:00 [facility] Respiratory Rate 16 br/min 07/03/2021 17:31:00 [facility] Peripheral Pulse Rate 66 bpm 07/03/2021 17:31:00 [facility] Peripheral Pulse Rate 64 bpm 07/19/2020 19:07:00 [facility] 22 [facility] Respiratory Rate 16 br/min 07/19/2020 19:07:00 [facility] Temperature Oral 37.5 Doris 07/19/2020 19:07:00 [facility] 22 [facility] BP Site Right arm 07/19/2020 19:07:00 [facility] 22 [facility] Systolic Blood Pressure 136 mm[Hg] 07/19/19 21 19:07:00 [facility] 22 [facility] Diastolic Blood Pressure 80 mmol 021 19:07:[address] [place] [address] 22 [facility] Mean Arterial Pressure, Calc 99 mm[Hg] 07/19/2020 19:07:[address] [place] [address] [facility] Blood Pressure Manual Automatic 07/19/2020 19:07:00 [facility] Temperature Oral 37 Doris 11/05/2022 17:33:00 [facility] Systolic Blood Pressure 120 mm[Hg] 11/06/19 23 17:33:00 [facility] Diastolic Blood Pressure 72 mm[Hg] 023 17:33:00 [facility] Blood Pressure Manual Automatic 11/05/2022 17:33:[address] [place] [address] [facility] BP Site Left arm 11/05/2022 17:33:00 [facility] Respiratory Rate 16 br/min 11/05/2022 17:33:00 [facility] Peripheral Pulse Rate 62 bpm 11/05/2022 17:33:[address] [place] [address] [facility] Mean Arterial Pressure, Calc 88 mm[Hg] 11/05/2022 17:33:00 [facility] Temperature Temporal Artery 36.4 Doris 11/06/2022 16:41:00 [facility] Systolic Blood Pressure 116 mm[Hg] 11/07/19 16:41:[address] [place] [address] [facility] Diastolic Blood Pressure 76 mm[Hg] 023 16:41:[address] [place] [address] Medical Clinic Respiratory Rate 16 br/min 11/06/2022 16:41:[address] [facility] Peripheral Pulse Rate 57 bpm 11/06/2022 16:41:[address] [place] [address] Medical Clinic BP Site Left arm 11/06/2022 16:41:[address] [place] [address] Medical [facility] Mean Arterial Pressure, Calc 89 mm[Hg] 11/06/2022 16:41:[address] [place] [address] Medical Clinic Blood Pressure Manual Automatic 11/06/2022 16:41:[address] [place] [address] Medical Clinic Encounters Combined list of: 1) Encounters from Department of Veterans Affairs facilities going backup to the last 18 months, not all VA inpatient encounters are included; 2) Encounters from the Department of Defense facilities going backup to 280 months. Location Location Details Encounter Type Encounter Number Reason For Visit Attending Provider ADM Date DC Date Status Disposition Source [facility](MCR D Recruit Processin g) OUTPATIENT [id number] Notes Entered by: Florian DOMINGO 10 Apr 2015 1238 ------- ------- ------- ------- -- MOT NORRIS STONE 04/10 Released w/o Limitations [facility](M CRD Recruit Process ing) [facility](MCR D Optometry ) OUTPATIENT [id number] Notes Entered by: PRISCA DIAL 12 Apr 2015 0857 ------- ------- ------- ------- -- RECRUIT PAUL BARRERA 04/12 Released w/o Limitations [facility](M CRD Optomet ry) [facility](MCR D Recruit Processin g) OUTPATIENT [id number] T3 VACCINE S JOSE ELIAS CHAIREZ T 04/19 Released w/o Limitations [facility](M CRD Recruit Process ing) [facility](MCR D Recruit Processin g) OUTPATIENT [id number] [id number] VACCINE S DRE AHUMADA W 05/11 Released w/o Limitations [facility](M CRD Recruit Process ing) [facility](MCR D Recruit Processin g) OUTPATIENT [id number] T48 VACCINE S DRE AHUMADA W 06/12 Released w/o Limitations [facility](M CRD Recruit Process ing) [facility](MCR D Recruit Sick Call) OUTPATIENT [id number] Notes Entered by: JANNA CHURCHILL 13 Jun 2015 1302 ------- ------- ------- ------- -- FLU JAYJAY WINSTON 06/13 Released w/o Limitations [facility](M CRD Recruit Sick Call) DC JANNETTE Rivera(52 ABC FP MHP) OUTPATIENT [id number] SARA Quick 07/18 Released w/o Limitations [facility] [place], [place](52 ABC FP MHP) [facility] 140) OUTPATIENT [id number] Notes Entered by: MARY ARCOS 02 Oct 2015 1524 ------- ------- ------- ------- -- CECILIO ANNE 10/01 Released w/o Limitations [facility](4 [address] [facility] 140) [facility]) OUTPATIENT [id number] Notes Entered by: Dominique SHEPARD 02 Nov 2015 0836 ------- ------- ------- ------- -- ANNUAL AUDIOGR AM (P) ELEANOR SHEPARD 11/01 Released w/o Limitations [facility](C P Hearing Conserv ation Clinic) [facility]([address] [facility] 140) OUTPATIENT [id number] Notes Entered by: BREE CROOK 10 Apr 2016 0846 ------- ------- ------- ------- -- FLU VACCINE DOS 016 ALEXANDER CROOK 04/10 Released w/o Limitations [facility](4 3 [facility] 140) [facility]([address] [place] [address]) OUTPATIENT [id number] MSG PHYSICA [id number] DARLENE HUBBARD 04/14 Released w/o Limitations [facility](4 [address] [place] [address]) [facility] [place] [place] OUTPATIENT [id number] Notes Entered by: ANDERS SHAW 19 Jun 2016 0815 ------- ------- ------- ------- -- PPD (MSG) JACKLYN MARTINEZ 06/19 Released w/o Limitations [facility]( [facility] [place]) [facility] [place]) OUTPATIENT [id number] Notes Entered by: MARTIN GARCIA 19 Jun 2016 0949 ------- ------- ------- ------- -- msg GAN RICK L 06/19 Released w/o Limitations [facility]( [facility] [place] [facility]) [facility](De ployment Health Qu) OUTPATIENT [id number] MSG PHASE 1 EDUARDO CHAPARRODEANNE Hatfield 06/19 Released w/o Limitations [facility]( Deploym ent Health Qu) [facility] [place]) OUTPATIENT [id number] Notes Entered by: ANNETTA ROE 05 Aug 2016 1341 ------- ------- ------- ------- -- ANTHRAX #1 (MSG) JACKLYN MARTINEZ 08/05 Released w/o Limitations [facility]( [facility] [place], [place] Imms) [facility](De ployment Health Qu) OUTPATIENT [id number] MSG PHASE 2 ALBERTO KWAN 08/05 Released w/o Limitations [facility]( Deploym ent Health Qu) [facility](22A saad Hearing Conservat ion) OUTPATIENT [id number] ANNUAL AUDIO DAMON RIVAS 05/17 Released w/o Limitations [facility](2 2Area Hearing Conserv ation) [facility](22 Area [facility] Blue Team [employer]) OUTPATIENT [id number] PHA TREVOR BARBOSA 06/03 Released w/o Limitations [facility](2 2 Area [facility] Blue [employer]) [id number] er for issue of other medical certifi leatha YOO 01/21 Discharge Disposition: Home or Self Care 00[facility] Procedures Combined list of: 1) Procedures from Department of Veterans Affairs facilities [facility], not all VA non-surgical procedures are included; 2) All procedures from the Department of Defense facilities. Procedure Procedure Type Code Date Perfomer Comments Sourc e ANTHRAX VACCINE, FOR SUBCUTANEOUS OR INTRAMUSCULAR USE 2016 [facility] DETERMINATION OF REFRACTIVE STATE 2016 [facility] SKIN TEST; TUBERCULOSIS, INTRADERMAL 2016 [facility] ADMINISTRATION OF PATIENT-FOCUSED HEALTH RISK ASSESSMENT INSTRUMENT (EG, HEALTH HAZARD APPRAISAL) WITH SCORING AND DOCUMENTATION, PER STANDARDIZED INSTRUMENT 2018 [facility] PURE TONE AUDIOMETRY (THRESHOLD), AUTOMATED; AIR ONLY 2018 [facility] INFLUENZA VIRUS VACCINE, QUADRIVALENT (IIV4), SPLIT VIRUS, PRESERVATIVE FREE, 0.5 ML DOSAGE, FOR INTRAMUSCULAR USE 2015 [facility] PURE TONE AUDIOMETRY (THRESHOLD), AUTOMATED; AIR ONLY 2015 [facility] SCREENING TEST OF VISUAL ACUITY, QUANTITATIVE, BILATERAL 2015 [facility] VARICELLA VIRUS VACCINE (JOSE JUAN), LIVE, FOR SUBCUTANEOUS USE 2014 [facility] IMMUNIZATION ADMINISTRATION (INCLUDES PERCUTANEOUS, INTRADERMAL, SUBCUTANEOUS, OR INTRAMUSCULAR INJECTIONS); EACH ADDITIONAL VACCINE (SINGLE OR COMBINATION VACCINE/TOXOID) 2014 [facility] MEASLES, MUMPS AND RUBELLA VIRUS VACCINE (MMR), LIVE, FOR SUBCUTANEOUS USE 2014 [facility] OPHTHALMOLOGICAL SERVICES: MEDICAL EXAMINATION AND EVALUATION WITH INITIATION OF DIAGNOSTIC AND TREATMENT PROGRAM; INTERMEDIATE, NEW PATIENT 2014 [facility] THERAPEUTIC, PROPHYLACTIC, OR DIAGNOSTIC INJECTION (SPECIFY SUBSTANCE OR DRUG); SUBCUTANEOUS OR INTRAMUSCULAR 2014 [facility] Immunization Administration One Vaccine Immunization Administration One Vaccine 21338 2016 JACKLYN MARTINEZ [facility] Ophthalmological New Patient Start Comprehensive Care Ophthalmological New Patient Start Comprehensive Care 60764 2016 ANDRES DUONG [facility] Determination Of Refractive State Determination Of Refractive State 79914 2016 ANDRES DUONG [facility] Skin Test Anergy Tuberculin Intradermal Skin Test Anergy Tuberculin Intradermal 92546 2016 JACKLYN MARTINEZ IPPD; Series #: 1; .1 mL; ID; Left Arm; Mfg: Other; Lot: [id number]; VIS given. DoD Immunization Administration One Vaccine Immunization Administration One Vaccine 56923 2015 ALEXANDER CROOK [facility] Threshold Audiogram (Pure Tone) Automated Threshold Audiogram (Pure Tone) Automated [id number] 2015 ELEANOR SHEPARD [facility] Patient education, not otherwise cla ified, non-physician provider, group, per se ion 2015 ELEANOR SHEPARD [facility] Screening Test Of Visual Acuity, Quantitative, Bilateral Screening Test Of Visual Acuity, Quantitative, Bilateral [address] Supervised Injection Intramuscular Supervised Injection Intramuscular 71211 2015 SWAPNA TRAORE [facility] Vaccines Viral Measles, Mumps and Rubella, Live Vaccines Viral Measles, Mumps and Rubella, Live 74484 2014 JAVIER CAO [facility] Immunization Administration One Vaccine Immunization Administration One Vaccine 28134 2014 JAVIER CAO Vaccines Viral Yellow Fever Vaccines Viral Yellow Fever [address] Supervised Injection Intramuscular Antibiotic Supervised Injection Intramuscular Antibiotic 48520 2014 JAVIER CAO Immunization Administration Each Additional Vaccine Immunization Administration Each Additional Vaccine 48457 2014 JAVIER CAO Immunization Administration One Vaccine Immunization Administration One Vaccine 51980 2014 AARON CROOK [facility] Immunization Administration Each Additional Vaccine Immunization Administration Each Additional Vaccine 84580 2014 AARON CROOK Hepatitis A And Hepatitis B (Intramuscular Use) Adult Dosage Hepatitis A And Hepatitis B (Intramuscular Use) Adult Dosage 72612 2014 AARON CROOK [facility] Vaccines Viral Polio, Inactivated (Salk) Vaccines Viral Polio, Inactivated (Salk) [address] Supervised Injection Intramuscular Antibiotic Supervised Injection Intramuscular Antibiotic 46434 2014 AARON CROOK [facility] Immunization Administration One Vaccine Immunization Administration One Vaccine 43289 2014 [facility] Each Additional Vaccine Immunization Administration Each Additional Vaccine 91604 2014 JO CROSS [facility] Vaccines Viral Measles, Mumps and Rubella, Live Vaccines Viral Measles, Mumps and Rubella, Live 11171 2014 JO CROSS [facility] Ophthalmological New Patient Start Intermediate Level Care Ophthalmological New Patient Start Intermediate Level Care [address] Supervised Injection Intramuscular Antibiotic Supervised Injection Intramuscular Antibiotic [address] [facility] Vaccines Adenovirus Type 7 Live, For Oral Use Vaccines Adenovirus Type 7 Live, For Oral Use [address] [facility] Serum Viral Antibody Immunoblot (Western Blot) HIV 1 & 2 Serum Viral Antibody Immunoblot (Western Blot) HIV 1 & [address] [facility] Serum Viral Antibody Mumps Serum Viral Antibody Mumps 21728 2014 [facility] Viral Antibody Rubella Serum Viral Antibody Rubella 26135 2014 [facility] Serum Viral Antibody Rubeola Serum Viral Antibody Rubeola [address] [facility] Serum Viral Antibody Varicella-Zoster Serum Viral Antibody Varicella-Zoster [address] [facility] Tdap Vaccine Seven Years Of Age And Above Tdap Vaccine Seven Years Of Age And Above [address] [facility] Hepatitis A And Hepatitis B (Intramuscular Use) Adult Dosage Hepatitis A And Hepatitis B (Intramuscular Use) Adult Dosage [address] [facility] Vaccines Adenovirus Type 4 Live, For Oral Use Vaccines Adenovirus Type 4 Live, For Oral Use [address] [facility] Venipuncture Venipuncture [address] [facility] Collection Of Capillary Blood Specimen Collection Of Capillary Blood Specimen [address] [facility] Immunization Administration One Vaccine Immunization Administration One Vaccine [address] [facility] Skin Test Anergy Tuberculin Intradermal Skin Test Anergy Tuberculin Intradermal [address] [facility] Pneumococcal Polysaccharide Vaccine Adult Dos For Intramusc Pneumococcal Polysaccharide Vaccine Adult Dos For Intramusc [address] [facility] Meningococcal Polysaccharide Vaccine (Active) Meningococcal Polysaccharide Vaccine (Active) 45046 2014 DANIELLE, EDUARDOWENDI BOWERS [facility] Immunization Administration Each Additional Vaccine Immunization Administration Each Additional Vaccine 66272 2014 GABINO DANIELLE [facility] Supervised Injection Intramuscular Supervised Injection Intramuscular 40003 2014 GABINO DANIELLE [facility] Patient education, not otherwise cla ified, non-physician provider, group, per se ion DAMON RIVAS Threshold Audiogram (Pure Tone) Automated Threshold Audiogram (Pure Tone) Automated [id number] DAMON RIVAS [facility] No data available for this section Ambulato ry Pharmacy Social History Combined list of available smoking, tobacco, and other social history from Department of Defense and Veterans Affairs facilities. Social History Type Response Date Comment Sour e Smoking Status Never (less than 100 in lifetime) 07/19/2020 Unknown Organization Sex Representation Male (finding) 03/28/2020 Un known Organization This section is an empty social history section. [facility] Sexual Orientation Ambula tory Pharmacy Gender identity Ambulator y Pharmacy Assessment and Plan Combined list of future care activities from Department of Defense and Veterans Affairs facilities (e.g., assessment and plan notes, appointments, orders, and referrals). Additional future care activities may be listed in the Plan of Care section. Result Assessment and Plan Date Source Assessment and Plan Extracted from:Title : [facility]PHA 2023 Author: SHERRI VARELA NP Date: 01/22/24 1.?Encounter for issue of other medical certificate Annual electronic periodic health assessment (DD Form 7508) has been reviewed by me for accuracy. A screening of the patient s health record along with answers inputted into the electronic periodic health assessment was completed. ? EPHA certified. Occupational health questionnaires reviewed. ? ? Immunizations current. Labs current. Dental current. Optometry current. Audiology current. ? The patient was found to be physically capable of performing assigned and prospective duties without limitations. The member has been informed that completion of any lab work, immunizations, recommended special studies, or screening are to be performed within the next 30 days and that they are personally responsible for his/her individual medical readiness. The route service manager stated understanding.? Sherri Gusman. ALISHA Varela, [place] Nurse Practitioner Individual Medical Readiness ? [facility] Extracted from:Title: SDA-DI PE Author: AMINAH JOHNSON PA Date: 02/26/23 1.?Encounter for other specified special examinations-SDA DI PE PT has no limiting chronic conditions.? All pmhx has been addressed and he has no concerns today.? Completed PE packet and returned to member for ADMIN dispo.? He understands all and has no further questions today. Aminah Johnson LT, MSC, N CHERELLE, MPAS, NPI-[id number] [address] [place] [address] ? ? Extracted from:Title: PHA Author: REJI SORIA PA-C Date: 11/28/22 1.?EXAM/ASSESSMENT, OCCUPATIONAL, SKIRT TRIMMER PERIODIC HEALTH ASSESSMENT (PHA) Virtual encounter for completion of Periodic Health Assessment (PHA). PHA DD Form 3024 is available for viewing?in .PDF format?at the following URL: [email or web address] ? This patient was? ?successfully contacted and their identify was confirmed. ? The route service manager? ?does not have any ongoing medical concerns. ? The route service manager is? ?fully medically ready. ? All of the patient's questions were answered. They were provided with our Director Of Intelligence contact information and informed to contact medical with any additional concerns or questions. ? A total of 15 minutes was spent going over the above information with the patient and for the coordination of follow-on care as necessary. ? ? Reji Soria Jr., [facility], CHERELLE LT, MSC, [facility]N [facility], [address] [place] [address] ? Extracted from:Title: Bilat Foot Pain Author: AMINAH JOHNSON PA Date: 11/06/22 1.?Plantar fasciitis of both feet Mild sx's today without obvious congenital/acquired deformity.? No prior h/o eval or education so we discussed self care considerations, footwear consideration, return precautions, and he has no further questions.? F/U PRN.? 2.?LBP - Low back pain Likely associated with foot pain.? Educated on self care, stretches, strengthening, and return precautions.? He understands all and has no further questions. Orders: Referral Request 2.0 Aminah Johnson LT, MSC, USN CHERELLE, [facility], NPI-[id number] [address] [place] [address], [place], [place] ? ? Extracted from:Title: Index Finger Verruca Author: AMINAH JOHNSON PA Date: 11/05/22 1.?Verruca vulgaris Solitary verruca to index finger.? Desired cryotherapy today, but clinic equipment was not functional.? PT offered salicylic acid but declines in favor for referral to [facility] for cryotherapy. He understands OTC options, self care, and the return precautions; but will place referral as requested.? He has no further questions and understands the process to obtain care.? F/U PRN. Ordered: Referral Request 2.0 ? Aminah Johnson LT, MSC, USN JOVANYC, [facility], [facility]-[id number] [address] [place] [address] ? ? Extracted from:Title: Ambulatory Patient Education Author: AMINAH JOHNSON PA Date: 11/05/22 Dermatology Cryosurgery for Skin Conditions Cryosurgery, also called cryotherapy, is the use of extremely cold liquid (liquid nitrogen) to freeze and remove abnormal or diseased tissue. Cryosurgery may be used to remove certain growths on the skin, such as: Warts. Skin sores that could turn into cancer (precancerous skin lesions or actinic keratoses). Some skin cancers. Cryosurgery usually takes a few minutes, and it can be done in your health care provider's office. Tell a health care provider about: Any allergies you have. All medicines you are taking, including vitamins, herbs, eye drops, creams, and jaoi-hfb-jujmyls medicines. Any problems you or family members have had with anesthetic medicines. Any blood disorders you have. Any surgeries you have had. Any medical conditions you have. Whether you are or may be . What are the risks? Generally, this is a safe procedure. However, problems may occur, including: Infection. Bleeding. Scarring. Changes in skin color (assistant field hockey coach or darker than normal skin tone). Swelling. Hair loss in the treated area. Damage to nearby structures or organs, such as nerve damage and loss of feeling. This is rare. What happens before the procedure? No specific preparation is needed for this procedure. Your health care provider will describe the procedure and will discuss the benefits and risks of the procedure with you. What happens during the procedure? Your procedure will be performed using one of the following methods: ? Your health care provider may apply a device (probe) to the skin. The probe has liquid nitrogen flowing through it to cool it down. The probe will be applied to the skin until the skin is frozen and destroyed. ? Your health care provider may apply liquid nitrogen to the skin with a swab or by spraying it on the skin until the skin is frozen and destroyed. The treated area may be covered with a bandage (dressing). These procedures may vary among health care providers and clinics. What can I expect after procedure? After your procedure, it is common to have redness, swelling, and a blister that forms over the treated area. The blister may contain a small amount of blood. You may also have some mild stinging or a burning sensation that will resolve. If a blister forms, it will break open on its own after about 2 4 weeks, leaving a scab. Then the treated area will heal. After healing, there is usually little or no scarring. Follow these instructions at home: Caring for the treated area Follow instructions from your health care provider about how to take care of the treated area. If you have a dressing, make sure you: ? Wash your hands with soap and water for at least 20 seconds before and after you change your dressing. If soap and water are not available, use hand customer care assistant. ? Change your dressing as told by your health care provider. ? Keep the dressing and the treated area clean and dry. If the dressing gets wet, change it right away. ? Clean the treated area with soap and water. ? Keep the area covered with a dressing until it heals, or for as long as told by your health care provider. Check the treated area every day for signs of infection. Check for: ? More redness, swelling, or pain. ? More fluid or blood. ? Warmth. ? Pus or a bad smell. If a blister forms, do not pick at your blister or try to break it open. Doing this can cause infection and scarring. Do not apply any medicine, cream, or lotion to the treated area unless directed by your health care provider. General instructions Take hmyq-nps-bnqixzg and prescription medicines only as told by your health care provider. Do not use any products that contain nicotine or tobacco, such as cigarettes, e-cigarettes, and chewing tobacco. These can delay healing. If you need help quitting, ask your health care provider. Do not take baths, swim, use a hot tub, hand-wash dishes, or otherwise soak the treated area until your health care provider approves. Ask your health care provider if you may take showers. You may only be allowed to take sponge baths. Keep all follow-up visits as told by your health care provider. This is important. Contact a health care provider if: You have more redness, swelling, or pain around the treated area. You have more fluid or blood coming from the treated area. The treated area feels warm to the touch. You have pus or a bad smell coming from the treated area. Your blister becomes large and painful. Get help right away if: You have a fever and have redness spreading from the treated area. Summary Cryosurgery, also called cryotherapy, is the use of extreme cold (liquid nitrogen) to freeze and remove abnormal growths or diseased tissue. Cryosurgery usually takes a few minutes, and it can be done in your health care provider's office. Generally, this is a safe procedure that requires no specific preparation beforehand. There are two different methods for performing cryosurgery. One method involves using a device (probe) to freeze the growth, and the other method involves applying liquid nitrogen directly to the growth. After treatment with cryotherapy, follow care instructions as provided by your health care provider. Watch for signs of infection. If a blister forms, do not pick at it or try to break it open. This information is not intended to replace advice given to you by your health care provider. Make sure you discuss any questions you have with your health care provider. Document Revised: 01/18/2020 Document Reviewed: 01/18/2020 [employer] Patient Education ? 2021 [employer]. Extracted from:Title: Annual Audiogram Author: DAMON RIVAS Date: 10/08/22 1.?EXAM, FORMAL OCCUPATIONAL HEALTH PROGRAM INCLUDING HEARING CONSERVATION PROGRAM, PERIODIC FOR CONTINUED SURVEILLANCE FOR OCCUPATIONAL WORKPLACE EXPOSURE 2.?Ear nose and throat disease treatment started 3.?Health education given Assessment: Patient?does not have an STS?in today's?audiogram.?No further testing required. Plan:? Return 1 year for annual audiogram. Extracted from:Title: ETD Author: REJI SORIA PA-C Date: 10/02/22 1.?Eustachian tube dysfunction History suspicious for ETD. Tx with zyrtec and flonase. RTC if condition persists after 3 days, or sooner if worsens. Strict ER precautions emphasized. He voiced understanding. ? ? ? Extracted from:Title: Office Clinic Note Author: DEVANTE HARMON Date: 07/03/21 Administrative reason for encounter refer to 2808/2807? Ordered: Education Activities of Daily Living ? Extracted from:Title: lbp Author: IRA HERNANDEZ Date: 07/25/20 1.?LBP - Low back pain ? - Patient educated on the use of? naproxen 50mg for pain 1 tab Q12H with food. - 7 days light duty to allow proper healing. Advised to rest and not over exert. Given home rehab and stretching. -hep - Patient educated on medical care and treatment plan, states full understanding on plan, tx and medication use. - Return to clinic if sx gets worse or new sx develop. ? 10/27/[address] [place] [address] Assessment and Plan Extracted from:Title : [facility] 2023 Author: SHERRI VARELA NP Date: 01/22/24 1.?Encounter for issue of other medical certificate Annual electronic periodic health assessment (DD Form 3025) has been reviewed by me for accuracy. A screening of the patient s health record along with answers inputted into the electronic periodic health assessment was completed. ? EPHA certified. Occupational health questionnaires reviewed. ? ? Immunizations current. Labs current. Dental current. Optometry current. Audiology current. ? The patient was found to be physically capable of performing assigned and prospective duties without limitations. The member has been informed that completion of any lab work, immunizations, recommended special studies, or screening are to be performed within the next 30 days and that they are personally responsible for his/her individual medical readiness. The route service manager stated understanding.? Sherri Gusman. ALISHA Varela, [facility] Nurse Practitioner Individual Medical Readiness ? [facility] Extracted from:Title: SDA-DI PE Author: AMINAH JOHNSON PA Date: 02/26/23 1.?Encounter for other specified special examinations-SDA DI PE PT has no limiting chronic conditions.? All pmhx has been addressed and he has no concerns today.? Completed PE packet and returned to member for ADMIN dispo.? He understands all and has no further questions today. Aminah Johnson LT MSC, GLADYS VILLARREAL, PATIENCE, NPI-[id number] [address] [place] [address], [place], [place] ? ? Extracted from:Title: PHA Author: REJI SORIA PA-C Date: 11/28/22 1.?EXAM/ASSESSMENT, OCCUPATIONAL, SKIRT TRIMMER PERIODIC HEALTH ASSESSMENT (PHA) Virtual encounter for completion of Periodic Health Assessment (PHA). PHA DD Form 3024 is available for viewing?in .PDF format?at the following URL: [email or web address] ? This patient was? ?successfully contacted and their identify was confirmed. ? The route service manager? ?does not have any ongoing medical concerns. ? The route service manager is? ?fully medically ready. ? All of the patient's questions were answered. They were provided with our Director Of Intelligence contact information and informed to contact medical with any additional concerns or questions. ? A total of 15 minutes was spent going over the above information with the patient and for the coordination of follow-on care as necessary. ? ? Reji Soria Jr., [facility], CHERELLE KONG, MSC, N [facility] Surgeon 1st [facility], 1st [facility] ? Extracted from:Title: Bilat Foot Pain Author: AMINAH JOHNSON PA Date: 11/06/22 1.?Plantar fasciitis of both feet Mild sx's today without obvious congenital/acquired deformity.? No prior h/o eval or education so we discussed self care considerations, footwear consideration, return precautions, and he has no further questions.? F/U PRN.? 2.?LBP - Low back pain Likely associated with foot pain.? Educated on self care, stretches, strengthening, and return precautions.? He understands all and has no further questions. Orders: Referral Request 2.0 Aminah Johnson LT, MSC, GLADYS VILLARREAL, PATIENCE, NPI-[id number] [address] [place] [address], [place], [place] ? ? Extracted from:Title: Index Finger Verruca Author: AMINAH JOHNSON PA Date: 11/05/22 1.?Verruca vulgaris Solitary verruca to index finger.? Desired cryotherapy today, but clinic equipment was not functional.? PT offered salicylic acid but declines in favor for referral to [facility] for cryotherapy. He understands OTC options, self care, and the return precautions; but will place referral as requested.? He has no further questions and understands the process to obtain care.? F/U PRN. Ordered: Referral Request 2.0 ? Aminah Johnson LT, MSC, USN PALynnC, MPAS, [id number] [address] [place] [address] ? ? Extracted from:Title: Ambulatory Patient Education Author: AMINAH JOHNSON PA Date: 11/05/22 Dermatology Cryosurgery for Skin Conditions Cryosurgery, also called cryotherapy, is the use of extremely cold liquid (liquid nitrogen) to freeze and remove abnormal or diseased tissue. Cryosurgery may be used to remove certain growths on the skin, such as: Warts. Skin sores that could turn into cancer (precancerous skin lesions or actinic keratoses). Some skin cancers. Cryosurgery usually takes a few minutes, and it can be done in your health care provider's office. Tell a health care provider about: Any allergies you have. All medicines you are taking, including vitamins, herbs, eye drops, creams, and yibx-rzj-khrykbn medicines. Any problems you or family members have had with anesthetic medicines. Any blood disorders you have. Any surgeries you have had. Any medical conditions you have. Whether you are or may be . What are the risks? Generally, this is a safe procedure. However, problems may occur, including: Infection. Bleeding. Scarring. Changes in skin color (assistant field hockey coach or darker than normal skin tone). Swelling. Hair loss in the treated area. Damage to nearby structures or organs, such as nerve damage and loss of feeling. This is rare. What happens before the procedure? No specific preparation is needed for this procedure. Your health care provider will describe the procedure and will discuss the benefits and risks of the procedure with you. What happens during the procedure? Your procedure will be performed using one of the following methods: ? Your health care provider may apply a device (probe) to the skin. The probe has liquid nitrogen flowing through it to cool it down. The probe will be applied to the skin until the skin is frozen and destroyed. ? Your health care provider may apply liquid nitrogen to the skin with a swab or by spraying it on the skin until the skin is frozen and destroyed. The treated area may be covered with a bandage (dressing). These procedures may vary among health care providers and clinics. What can I expect after procedure? After your procedure, it is common to have redness, swelling, and a blister that forms over the treated area. The blister may contain a small amount of blood. You may also have some mild stinging or a burning sensation that will resolve. If a blister forms, it will break open on its own after about 2 4 weeks, leaving a scab. Then the treated area will heal. After healing, there is usually little or no scarring. Follow these instructions at home: Caring for the treated area Follow instructions from your health care provider about how to take care of the treated area. If you have a dressing, make sure you: ? Wash your hands with soap and water for at least 20 seconds before and after you change your dressing. If soap and water are not available, use hand customer care assistant. ? Change your dressing as told by your health care provider. ? Keep the dressing and the treated area clean and dry. If the dressing gets wet, change it right away. ? Clean the treated area with soap and water. ? Keep the area covered with a dressing until it heals, or for as long as told by your health care provider. Check the treated area every day for signs of infection. Check for: ? More redness, swelling, or pain. ? More fluid or blood. ? Warmth. ? Pus or a bad smell. If a blister forms, do not pick at your blister or try to break it open. Doing this can cause infection and scarring. Do not apply any medicine, cream, or lotion to the treated area unless directed by your health care provider. General instructions Take encc-vow-chrwpfr and prescription medicines only as told by your health care provider. Do not use any products that contain nicotine or tobacco, such as cigarettes, e-cigarettes, and chewing tobacco. These can delay healing. If you need help quitting, ask your health care provider. Do not take baths, swim, use a hot tub, hand-wash dishes, or otherwise soak the treated area until your health care provider approves. Ask your health care provider if you may take showers. You may only be allowed to take sponge baths. Keep all follow-up visits as told by your health care provider. This is important. Contact a health care provider if: You have more redness, swelling, or pain around the treated area. You have more fluid or blood coming from the treated area. The treated area feels warm to the touch. You have pus or a bad smell coming from the treated area. Your blister becomes large and painful. Get help right away if: You have a fever and have redness spreading from the treated area. Summary Cryosurgery, also called cryotherapy, is the use of extreme cold (liquid nitrogen) to freeze and remove abnormal growths or diseased tissue. Cryosurgery usually takes a few minutes, and it can be done in your health care provider's office. Generally, this is a safe procedure that requires no specific preparation beforehand. There are two different methods for performing cryosurgery. One method involves using a device (probe) to freeze the growth, and the other method involves applying liquid nitrogen directly to the growth. After treatment with cryotherapy, follow care instructions as provided by your health care provider. Watch for signs of infection. If a blister forms, do not pick at it or try to break it open. This information is not intended to replace advice given to you by your health care provider. Make sure you discuss any questions you have with your health care provider. Document Revised: 01/18/2020 Document Reviewed: 01/18/2020 [employer] Patient Education ? 2021 [employer]. Extracted from:Title: Annual Audiogram Author: DAMON RIVAS Date: 10/08/22 1.?EXAM, FORMAL OCCUPATIONAL HEALTH PROGRAM INCLUDING HEARING CONSERVATION PROGRAM, PERIODIC FOR CONTINUED SURVEILLANCE FOR OCCUPATIONAL WORKPLACE EXPOSURE 2.?Ear nose and throat disease treatment started 3.?Health education given Assessment: Patient?does not have an STS?in today's?audiogram.?No further testing required. Plan:? Return 1 year for annual audiogram. Extracted from:Title: ETD Author: REJI SORIA PA-C Date: 10/02/22 1.?Eustachian tube dysfunction History suspicious for ETD. Tx with zyrtec and flonase. RTC if condition persists after 3 days, or sooner if worsens. Strict ER precautions emphasized. He voiced understanding. ? ? ? Extracted from:Title: Office Clinic Note Author: DEVANTE HARMON Date: 07/03/21 Administrative reason for encounter refer to [id number]? Ordered: Education Activities of Daily Living ? Extracted from:Title: lbp Author: IRA HERNANDEZ Date: 07/25/20 1.?LBP - Low back pain ? - Patient educated on the use of? naproxen 50mg for pain 1 tab Q12H with food. - 7 days light duty to allow proper healing. Advised to rest and not over exert. Given home rehab and stretching. -hep - Patient educated on medical care and treatment plan, states full understanding on plan, tx and medication use. - Return to clinic if sx gets worse or new sx develop. ? 10/27/[address] [place] [address] [address] [facility] Functional Status Combined list of recent functional and cognitive assessments recorded at [facility] [employer] [facility] Functional [place] Measurement (FIM) Scale: 1 = Total Assistance (Subject = 0% +), 2 = Maximal Assistance (Subject = 25% +), 3 = Moderate Assistance (Subject = 50% +), 4 = Minimal Assistance (Subject = 75% +), 5 = Supervision, 6 = Modified [place] (Device), 7 = Complete [place] (Timely, Safely). Assessment Date/Time Source Assessment Type Assessment Skill Assessment Score Assessment Details No data available for this section
== END 2024-10-27 09:44 | disposition home or self-care (01) ==
LOC: HO.HOS 09:07
PROVIDERS: PCP Family Medicine; Visit Provider Orthopaedic Surgery
DX: M22.2X9 Patellofemoral disorders, unspecified knee (principal)
CPT/HCPCS: 99214

== ENCOUNTER → 2024-10-27 09:05 | Outpatient (BNVA) | payer OTHER, SELFPAY | PROVIDERS: PCP Family Medicine; Visit Provider Orthopaedic Surgery | DX: M22.2X9 Patellofemoral disorders, unspecified knee (principal) | CPT/HCPCS: 99212 ==

== ENCOUNTER 2024-11-03 09:31 | Outpatient (AMB) | payer OTHER, SELFPAY ==
[2024-11-03 09:32] VITALS: BMI 26.8
--- NOTE | 2024-11-03 09:32 | A.OFFVIS_ITS ---
Vital Signs 11/03/24 09:32 Height 5 ft 5 in Weight 161 lb BMI 26.8 Intake Visit Reasons: New prob- R shoulder pain Intake Note: Isaiah is a 29 year old right hand dominant male who presents today for a new problem visit with complaints of right shoulder pain. Patient reports that he has had ongoing right shoulder pain since about May. He reports no injury. The pain in the right shoulder is felt with push exercises and twisting with weight bearing. he gets a sharp pain at the anterior aspect of the right shoulder. Denies numbness tingling and weakness of the hand. He is not taking anything for his pain. Allergies No Known Allergies Allergy (Verified 04/06/24 15:40) HPI HPI New prob- R shoulder pain: Details: Isaiah is a 29 year old right hand dominant male who presents today for a new problem visit with complaints of right shoulder pain. Patient reports that he has had ongoing right shoulder pain since about May. He reports no injury. The pain in the right shoulder is felt with push exercises and twisting with w eight bearing. he gets a sharp pain at the anterior aspect of the right shoulder. Denies numbness tingling and weakness of the hand. He is not taking anything for his pain. PFSH Family History Father Diabetes Social History Housing: Apartment Patient Tobacco Use Status: Never used Tobacco e-Cigarette/Vaping Use: Never Used Second Hand Smoke Exposure: No service: Yes Current occupational status: employed Current occupation: [employer] Current occupational exposures/hazards: No Cognitive needs: No Hearing needs: No Vision needs: No Physical Exam Vital Signs: BMI result Body Mass Index 26.8 Extrem Other: Well-developed shoulder girdle with no visual abnormalities. Negative empty can and full range of motion. Does have tenderness over the proximal bicipital groove with a negative speed and Yergason's. 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 I discussed treatment options with him. I do not recommend any formal treatment at this time other than a question of physical therapy. An order was placed. I think he can modify activities at the gym and this should resolve things. If it worsens he will come back to see me. Coding Level of Care Code Est Pt Level 3 (71520) Diagnoses Bicipital tendinitis M75.20
--- OUTSIDE RECORDS SUMMARY | 2024-11-03 09:49 | XMS_ITS | Continuity of Care Document ---
Author Name [facility] Organization [facility] Care Team Providers Care Utility Porter Name Role Phone [facility] Unavailable Unavailable Problems Combined list of problems from Department of Defense and Veterans Affairs facilities. It does not include entries that were removed or entered in error. Problem Status Onset Date Problem Type Date of Resolution Comments Source Encounter for issue of other medical certificate Active 01/22/2024 Diagnosis [facility] [place] LBP - Low back pain Active Condition Unknown Organization Plantar fasciitis of both feet Active Condition [address] [place] [address] Verruca vulgaris Active Condition [address] [place] [address] Medical [facility] Encounter for other procedures for purposes other than remedying health state Active Condition [facility] Medications Combined list of outpatient medications from Department of Defense and Veterans Affairs facilities.Medications provided include 1) outpatient medications from the last 15 months, and 2) patient-reported medications. Medication Details Route Status Patient Instructions Prescription Expires Prescription Number Last Dispense Date Ordering Provider Order Date Order Qty Source Flonase 50 mcg/inh nasal spray 50 mcg, Nostril- Both, BID, # 16 g, 5 total refill(s ), Maintena nce, Pharmacy : [facility] Nostri l-Both (into the nose) Ordered 3 2022 16.0 1974C-N [address] ibuprofen 800 mg oral tablet 1 tab(s), Oral, TID, # 90 tab(s), 0 total refill(s ), Acute, 03/07/21 2:00:00 AM CDT, Pharmacy : [facility] Oral (given by mouth) Complet ed 03/07/2021 1 2020 90.0 1417C-2 2 [facility] PreviDent 5000 Plus topical paste See Instruct ions, Apply 1 thin ribbon to toothbru sh. [place] thorough ly twice a day. Do not rinse, eat or drink for 30 minutes. , # 51 g, 3 total refill(s ), Maintena nce, Pharmacy : [facility] Ordered 3 2022 51.0 1417C-2 2 [facility] ZyrTEC 10 mg oral tablet 1 tab(s), Oral, Daily, PRN allergy symptoms , # 90 tab(s), 3 total refill(s ), [facility], Pharmacy : [facility] Oral (given by mouth) Discont inued 10/02/20222022 90.[address] [place] [address] ZyrTEC 10 mg oral tablet 1 tab(s), Oral, Daily, # 30 tab(s), 3 total refill(s ), [facility], Pharmacy : [facility] Oral (given by mouth) Ordered 3 [address] [place] [address] Allergies, Adverse Reactions, Alerts Combined list of allergies from Department of Defense and Veterans Affairs facilities. It does not include entries that were removed or entered in error. Substance Category Reaction Severity Reaction type Status Date Reported Comments Source No Known Allergies Drug allergy (disorder) active 04/11/2015 [facility] Immunizations Combined list of available immunizations from the Department of Defense and Veterans Affairs facilities. Immunization Series Date Given Administered By Site Reaction Lot Number CVX Code Drug Caser Status Comments Source influenza virus vaccine, inactivated 2021 RADHANMHOANA Danileson tomy, left (delt oid) [id number] [employer], [employer] complet ed influenza virus vaccine, inactivat ed 03/31/[address] influenza virus vaccine, inactivated 2020 BRANDONABRADL PRASHANT Danielson tomy, left (delt oid) [id number] 150 GlaxoSmithKli ca complet ed influenza virus vaccine, inactivat ed 04/18/[address] COVID Vaccine Pfizer 2020 EBENEZER Danielson tmoy, left (delt oid) [id number] PFIZER complet ed COVID Vaccine Pfizer 09/05/20 Given 0024C-N [facility] on COVID Vaccine Pfizer 2020 ELVA Danielson tomy, left (delt oid) [id number] PFIZER complet ed COVID Vaccine Pfizer 08/15/20 Given 1973C-N HCP 22 [facility] influenza virus vaccine, inactivated 2019 JORDAN Danielson tomy, left (delt oid) [id number] 158 Seqirus, A [employer] complet ed influenza virus vaccine, inactivat ed 05/03/20 Given 1973C-N HCP 22 [facility] influenza, injectable, quadrivalent- pf 2018 [id number] 150 [employer] complet ed influenza , injectabl e, quadrival ent-pf 04/12/19 Given Ambulat ory Pharmac y Influenza, injectable, quadrivalent, preservative free 0 2018 [id number] 150 Seqirus (SEQ) comple t ed Influenza , injectabl e, quadrival ent, preservat federico free DoD rabies vaccine, purified chick embryo 2018 Body, whole [id number] complet ed rabies vaccine, purified chick embryo 10/12/18 Given Ambulat ory Pharmac y rabies vaccine, IM 2018 [id number] 175 Sclavo[employer] Inc. complet ed rabies vaccine, IM 10/12/18 Given Ambulat ory Pharmac y Human Rabies vaccine from human diploid cell culture 3 2018 [id number] 175 Sclavo (SCL) complet ed Human Rabies vaccine from human diploid cell culture DoD Human rabies vaccine from Chicken fibroblast culture 3 2018 VALERIA PETER [id number] 176 Transcribed (TRS) complet ed Human rabies vaccine from Chicken fibroblas t culture DoD rabies vaccine, IM 2018 [id number] 175 S[employer] Inc. complet ed rabies vaccine, IM 10/02/18 Given Ambulat ory Pharmac y Human Rabies vaccine from human diploid cell culture 2 2018 [id number] 175 Sclavo (SCL) complet ed Human Rabies vaccine from human diploid cell culture DoD rabies vaccine, purified chick embryo 2018 zzLef t Arm [id number] 176 complet ed rabies vaccine, purified chick embryo 09/14/18 Given Ambulat ory Pharmac y Human rabies vaccine from Chicken fibroblast culture 2 2018 VALERIA PETER [id number] 176 Transcribed (TRS) complet ed Human rabies vaccine from Chicken fibroblas t culture DoD rabies vaccine, IM 2018 [id number] 175 Sclavo[employer] Inc. complet ed rabies vaccine, IM 09/06/18 Given Ambulat ory Pharmac y rabies vaccine, purified chick embryo 2018 zzLef t Arm [id number] 176 complet ed rabies vaccine, purified chick embryo 09/06/18 Given Ambulat ory Pharmac y Human Rabies vaccine from human diploid cell culture 1 2018 [id number] 175 Sclavo (SCL) complet ed Human Rabies vaccine from human diploid cell culture DoD Human rabies vaccine from Chicken fibroblast culture 1 2018 VALERIA PETER [id number] 176 Transcribed (TRS) complet ed Human rabies vaccine from Chicken fibroblas t culture DoD anthrax vaccine 2016 zzLef t Arm [id number] [employer] complet ed anthrax vaccine 08/05/16 Given Ambulat ory Pharmac y anthrax vaccine 1 2016 JACKLYN MARTINEZ N [id number] [employer] (MIP) complet ed anthrax vaccine DoD tuberculin purified protein derivative 2016 zzLef t Arm [id number] Unknown complet ed tuberculi n purified protein derivativ e 06/19/16 Given Ambulat ory Pharmac y tuberculin skin test; purified protein derivative solution, intradermal 1 2016 JACKLYN MARTINEZ N [id number] 96 Other (OTH) complet ed tuberculi n [...] free DoD hepatitis A-hepatitis B vaccine 2015 [id number] 104 GlaxoSmithKli ne complet ed hepatitis A-hepatit [...] A and hepatitis B vaccine 3 2015 [id number] 104 [facility] complet ed hepatitis A and hepatitis B vaccine DoD varicella virus vaccine 2014 [id number] 21 Merck & Company Inc complet ed varicella virus vaccine 06/11/15 Given Ambulat ory Pharmac y measles/mumps /rubella virus vaccine 2014 [id number] 03 Merck & Company Inc complet ed measles/m umps/rube lla virus vaccine 06/11/15 Given Ambulat ory Pharmac y yellow fever vaccine 2014 [id number] 37 sanofi pasteur complet ed yellow fever vaccine 06/11/15 Given Ambulat ory Pharmac y measles, mumps and rubella virus vaccine 0 2014 [id number] 03 Merck (MSD) complet ed measles, mumps and rubella virus vaccine DoD varicella virus vaccine 2 2014 [id number] 21 Merck (MSD) complet ed varicella virus vaccine DoD yellow fever vaccine 0 2014 [id number] 37 Sanofi Pasteur (PMC) complet ed yellow fever vaccine DoD hepatitis A-hepatitis B vaccine 2014 [id number] 104 GlaxoSmithKli ne complet ed hepatitis A-hepatit is B vaccine 05/11/15 Given Ambulat ory Pharmac y poliovirus vaccine, inactivated 2014 [id number] 10 sanofi pasteur complet ed polioviru s vaccine, inactivat ed 05/11/15 Given Ambulat ory Pharmac y poliovirus vaccine, inactivated 0 2014 [id number] 10 Sanofi Pasteur (PMC) complet ed polioviru s vaccine, inactivat ed DoD hepatitis A and hepatitis B vaccine 2 2014 [id number] 104 [facility] complet ed hepatitis A and hepatitis B vaccine DoD varicella virus vaccine 2014 [id number] 21 Merck & Company Inc complet ed varicella virus vaccine 04/19/15 Given Ambulat ory Pharmac y measles/mumps /rubella virus vaccine 2014 [id number] 03 Merck & Company Inc complet ed measles/m umps/rube lla virus vaccine 04/19/15 Given Ambulat ory Pharmac y measles, mumps and rubella virus vaccine 0 2014 [id number] 03 Merck (MSD) complet ed measles, mumps and rubella virus vaccine DoD varicella virus vaccine 1 2014 [id number] 21 Merck (MSD) complet ed varicella virus vaccine DoD tetanus, diphtheria, acellular pertu is 2014 [id number] 115 sanofi pasteur complet ed tetanus, diphtheri a, acellular pertussis 04/11/15 Given Ambulat ory Pharmac y hepatitis A-hepatitis B vaccine 2014 [id number] 104 [employer] ca complet ed hepatitis A-hepatit is B vaccine 04/11/15 Given Ambulat ory Pharmac y pneumococcal polysaccharid e, 23 valent 2014 [id number] 33 Merck & Company Inc complet ed pneumococ peter polysacch aride, 23 valent 04/11/15 Given Ambulat ory Pharmac y influenza, injectable, quadrivalent- pf 2014 [id number] 150 [employer] Inc comple t ed influenza , injectabl e, quadrival ent-pf 04/11/15 Given Ambulat ory Pharmac y adenovirus vaccine, live 2014 [id number] 143 Teva Pharmaceutica complet ed adenoviru s vaccine, live 04/11/15 Given Ambulat ory Pharmac y meningococcal A,C,Y,W-135 (MCV4P) 2014 [id number] 114 sanofi pasteur complet ed meningoco ccal A,C,Y,W-1 35 (MCV4P) 04/11/15 Given Ambulat ory Pharmac y pneumococcal polysaccharid e vaccine, 23 valent 0 2014 [id number] 33 Merck (MSD) complet ed pneumococ peter polysacch aride vaccine, 23 valent DoD hepatitis A and hepatitis B vaccine 1 2014 [id number] 104 [employer] (SKB) complet ed hepatitis A and hepatitis B vaccine DoD meningococcal polysaccharid e (groups A, C, Y and W-135) diphtheria toxoid conjugate vaccine (MCV4P) 0 2014 [id number] 114 Sanofi Pasteur ([facility]) complet ed meningoco ccal polysacch aride (groups A, C, Y and W-135) diphtheri a toxoid conjugate vaccine (MCV4P) DoD tetanus toxoid, reduced diphtheria toxoid, and acellular pertu is vaccine, adsorbed 0 2014 [id number] 115 Sanofi Pasteur (PMC) complet ed tetanus toxoid, reduced diphtheri a toxoid, and acellular pertussis vaccine, adsorbed DoD Adenovirus, type 4 and type 7, live, oral 0 2014 [id number] 143 [employer] (BRR) complet ed Adenoviru s, type 4 and type 7, live, oral DoD Influenza, injectable, quadrivalent, preservative free 0 2014 [id number] 150 M[employer]. (MED) complet ed Influenza , injectabl e, [...] Force Test (02/25/23 11:56 AM) [facility] HIV-1/2 AG/AB 4G CDD LC NEGATIVE 02/25 Result Comment: Performed At: 1 [facility] [address] [facility] [address] [place] [address] MALINA CHRISTY PHD Ph:[phone] [facility] [place] [facility] Infectiou s Disease Reason for Test? Screening (07/15/21 12:24 PM) 07/15 [facility] [place] [facility] Disease SARS-CoV -2, KAYLEN LC Detected 07/15 A Result Comment: Patients who have a positive COVID-19 test result may now have treatment options. Treatment options are available for patients with mild to moderate symptoms and for hospitalize d patients. Visit our website at [email or web address] for resources and information . This nucleic acid amplificati on test was developed and its performance characteris tics determined by [employer]. Nucleic acid amplificati on tests [...] result in this assay. Performed At: [address] [employer] [address] [facility], [place] [id number] Rodolfo Lam[place]ton Pat [facility] Ph:[phone] [place] [address] Infectiou s Disease Source of Test.LC Phys Exam (06/26/21 3:08 PM) 06/[address] [place] [address] [facility] HIV-1/2 AG/AB 4G CDD LC NEGATIVE 06/26 Result Comment: Performed At: 1 [facility] [address] [facility] [address] [place] [address] MALINA RAYMONDN PHD Ph:[phone] [place] [address] Vital Signs Combined list of inpatient and outpatient Vital Signs from Department of Defense and Veterans Affairs, ranging from 12 months to all on record, depending upon the facility. Vital Sign Value Date Comments Source Blood Pressure Manual Automatic 02/26/2023 15:52:[address] [place] [address] [facility] Mean Arterial Pressure, Calc 86 mm[Hg] 02/26/2023 15:52:00 [facility] Systolic Blood Pressure 127 mm[Hg] 02/27/20 15:52:00 1973[facility] Diastolic Blood Pressure 66 mm[Hg] 023 15:52:00 1973[facility] Peripheral Pulse Rate 59 bpm 02/26/2023 15:52:00 1973[facility] Respiratory Rate 16 br/min 02/26/2023 15:52:00 1973[facility] BP Site Left arm 02/26/2023 15:52:00 1973[facility] Temperature Tympanic 36.8 Doris 02/26/2023 15:52:00 1973[facility] Mean Arterial Pressure, Calc 94 mm[Hg] 07/03/2021 17:31:00 1973[facility] Systolic Blood Pressure 134 mm[Hg] 07/03/19 17:31:00 1973[facility] Diastolic Blood Pressure 74 mm[Hg] 022 17:31:00 1973[facility] Respiratory Rate 16 br/min 07/03/2021 17:31:00 1973[facility] Peripheral Pulse Rate 66 bpm 07/03/2021 17:31:00 1973[facility] Peripheral Pulse Rate 64 bpm 07/19/2020 19:07:00 1973[facility] 22 [facility] Respiratory Rate 16 br/min 07/19/2020 19:07:00 1973[facility] Temperature Oral 37.5 Doris 07/19/2020 19:07:00 1973[facility] 22 [facility] BP Site Right arm 07/19/2020 19:07:00 1973[facility] 22 [facility] Systolic Blood Pressure 136 mm[Hg] 07/19/19 21 19:07:00 [facility] 22 [facility] Diastolic Blood Pressure 80 mmol 021 19:07:[address] [place] [address] 22 [facility] Mean Arterial Pressure, Calc 99 mm[Hg] 07/19/2020 19:07:[address] [place] [address] [facility] Blood Pressure Manual Automatic 07/19/2020 19:07:00 1973[facility] Temperature Oral 37 Doris 11/05/2022 17:33:00 1973[facility] Systolic Blood Pressure 120 mm[Hg] 11/06/19 23 17:33:00 1973[facility] Diastolic Blood Pressure 72 mm[Hg] 023 17:33:00 1973[facility] Blood Pressure Manual Automatic 11/05/2022 17:33:[address] [place] [address] [facility] BP Site Left arm 11/05/2022 17:33:00 1973[facility] Respiratory Rate 16 br/min 11/05/2022 17:33:00 1973[facility] Peripheral Pulse Rate 62 bpm 11/05/2022 17:33:[address] [place] [address] [facility] Mean Arterial Pressure, Calc 88 mm[Hg] 11/05/2022 17:33:00 1973[facility] Temperature Temporal Artery 36.4 Doris 11/06/2022 16:41:00 1973[facility] Systolic Blood Pressure 116 mm[Hg] 11/07/19 16:41:[address] [place] [address] [facility] Diastolic Blood Pressure 76 mm[Hg] 023 16:41:[address] [place] [address] Medical Clinic Respiratory Rate 16 br/min 11/06/2022 16:41:[address] [facility] Peripheral Pulse Rate 57 bpm 11/06/2022 16:41:[address] [place] [address] Medical Clinic BP Site Left arm 11/06/2022 16:41:[address] [place] [address] [facility] Mean Arterial Pressure, Calc 89 mm[Hg] 11/06/2022 16:41:[address] [place] [address] Medical Clinic Blood Pressure Manual Automatic 11/06/2022 16:41:[address] [place] [address] Medical Clinic Encounters Combined list of: 1) Encounters from Department of Veterans Affairs facilities going backup to the last 18 months, not all VA inpatient encounters are included; 2) Encounters from the Department of Defense facilities going backup to 280 months. Location Location Details Encounter Type Encounter Number Reason For Visit Attending Provider ADM Date DC Date Status Disposition Source [facility](MCR D Recruit Processin g) OUTPATIENT [id number] Notes Entered by: Florian DOMINGO 10 Apr 2015 1238 ------- ------- ------- ------- -- MOT NORRIS STONE 04/10 Released w/o Limitations [facility](M CRD Recruit Process ing) [facility](MCR D Optometry ) OUTPATIENT [id number] Notes Entered by: PRISCA DIAL 12 Apr 2015 0857 ------- ------- ------- ------- -- RECRUIT PAUL BARRERA 04/12 Released w/o Limitations [facility](M CRD Optomet ry) [facility](MCR D Recruit Processin g) OUTPATIENT [id number] T3 VACCINE S JOSE ELIAS CHAIREZ T 04/19 Released w/o Limitations [facility](M CRD Recruit Process ing) [facility](MCR D Recruit Processin g) OUTPATIENT [id number] T22 VACCINE S DRE AHUMADA W 05/11 Released w/o Limitations [facility](M CRD Recruit Process ing) [facility](MCR D Recruit Processin g) OUTPATIENT [id number] T48 VACCINE S DRE AHUMADA W 06/12 Released w/o Limitations [facility](M CRD Recruit Process ing) [facility](MCR D Recruit Sick Call) OUTPATIENT [id number] Notes Entered by: JANNA CHURCHILL 13 Jun 2015 1302 ------- ------- ------- ------- -- FLU JAYJAY WINSTON 06/13 Released w/o Limitations [facility](M CRD Recruit Sick Call) [place] JANNETTE Rivera(52 ABC FP MHP) OUTPATIENT [id number] SARA Quick 07/18 Released w/o Limitations [facility] [place] [facility] [place](52 ABC FP MHP) [facility](43 Area [facility] 140) OUTPATIENT [id number] Notes Entered by: MARY ARCOS 02 Oct 2015 1524 ------- ------- ------- ------- -- CECILIO ANNE 10/01 Released w/o Limitations [facility](4 3 Area [facility] 140) [facility](CP Hearing Conservat ion [facility]) OUTPATIENT [id number] Notes Entered by: Dominique SHEPARD 02 Nov 2015 0836 ------- ------- ------- ------- -- ANNUAL AUDIOGR AM (P) ELEANOR SHEPARD 11/01 Released w/o Limitations [facility](C P Hearing Conserv ation Clinic) [facility](43 [address] [facility] 140) OUTPATIENT [id number] Notes Entered by: BREE CROOK 10 Apr 2016 0846 ------- ------- ------- ------- -- FLU VACCINE DOS 016 ALEXANDER CROOK 04/10 Released w/o Limitations [facility](4 3 Area [facility] 140) [facility]([address] [place] [address]) OUTPATIENT [id number] MSG PHYSICA [id number] DARLENE HUBBARD 04/14 Released w/o Limitations [facility](4 [address] [place] [address]) [facility] [place] [place] OUTPATIENT [id number] Notes Entered by: ANDERS SHAW 19 Jun 2016 0815 ------- ------- ------- ------- -- PPD (MSG) JACKLYN MARTINEZ 06/19 Released w/o Limitations [facility]( [facility], [place] [place]) [facility] [place]) OUTPATIENT [id number] Notes Entered by: MARTIN GARCIA 19 Jun 2016 0949 ------- ------- ------- ------- -- msg GAN RICK L 06/19 Released w/o Limitations [facility]( [facility] [place] [facility]) [facility](De ployment Health Qu) OUTPATIENT [id number] MSG PHASE 1 EDUARDO CHAPARRODEANNE Hatfield 06/19 Released w/o Limitations [facility]( Deploym ent Health Qu) [facility](He alth Prom, [facility] [place]) OUTPATIENT [id number] Notes Entered by: ANNETTA ROE 05 Aug 2016 1341 ------- ------- ------- ------- -- ANTHRAX #1 (MSG) JACKLYN MARTINEZ 08/05 Released w/o Limitations [facility]( [facility] [place]) [facility](De ployment Health Qu) OUTPATIENT [id number] MSG PHASE 2 ALBERTO KWAN 08/05 Released w/o Limitations [facility]( Deploym ent Health Qu) [facility](22A saad Hearing Conservat ion) OUTPATIENT [id number] ANNUAL AUDIO DAMON RIVAS 05/17 Released w/o Limitations [facility](2 2Area Hearing Conserv ation) [facility](22 Area [facility] Blue Team [employer]) OUTPATIENT [id number] PHA TREVOR BARBOSA 06/03 Released w/o Limitations [facility](2 2 Area [facility] [employer]) [facility] [id number] er for issue of other medical certifi leatha YOO 01/21 Discharge Disposition: Home or Self Care 0035C-N [facility] Procedures Combined list of: 1) Procedures from Department of Veterans Affairs facilities [facility], not all VA non-surgical procedures are included; 2) All procedures from the Department of Defense facilities. Procedure Procedure Type Code Date Perfomer Comments Sourc e No data available for this section Ambulato ry Pharmacy Immunization Administration One Vaccine Immunization Administration One Vaccine 56687 2016 JACKLYN MARTINEZ [facility] Ophthalmological New Patient Start Comprehensive Care Ophthalmological New Patient Start Comprehensive Care 50978 2016 ANDRES DUONG Determination Of Refractive State Determination Of Refractive State 78469 2016 ANDRES DUONG Skin Test Anergy Tuberculin Intradermal Skin Test Anergy Tuberculin Intradermal 17315 2016 JACKLYN MARTINEZ IPPD; Series #: 1; .1 mL; ID; Left Arm; Mfg: Other; Lot: [id number]; VIS given. DoD Immunization Administration One Vaccine Immunization Administration One Vaccine 70785 2015 ALEXANDER CROOK Threshold Audiogram (Pure Tone) Automated Threshold Audiogram (Pure Tone) Automated [id number] 2015 ELEANOR SHEPARD [facility] Patient education, not otherwise cla ified, non-physician provider, group, per se ion 2015 ELEANOR SHEPARD Screening Test Of Visual Acuity, Quantitative, Bilateral Screening Test Of Visual Acuity, Quantitative, Bilateral [address] Supervised Injection Intramuscular Supervised Injection Intramuscular 62188 2015 SWAPNA TRAORE Vaccines Viral Measles, Mumps and Rubella, Live Vaccines Viral Measles, Mumps and Rubella, Live 67055 2014 JAVIER CAO Immunization Administration One Vaccine Immunization Administration One Vaccine 65802 2014 JAVIER CAO Vaccines Viral Yellow Fever Vaccines Viral Yellow Fever [address] Supervised Injection Intramuscular Antibiotic Supervised Injection Intramuscular Antibiotic 44777 2014 JAVIER CAO Immunization Administration Each Additional Vaccine Immunization Administration Each Additional Vaccine 70683 2014 JAVIER CAO Immunization Administration One Vaccine Immunization Administration One Vaccine 35371 2014 AARON CROOK Immunization Administration Each Additional Vaccine Immunization Administration Each Additional Vaccine 43216 2014 AARON CROOK Hepatitis A And Hepatitis B (Intramuscular Use) Adult Dosage Hepatitis A And Hepatitis B (Intramuscular Use) Adult Dosage 76009 2014 AARON CROOK [facility] Vaccines Viral Polio, Inactivated (Salk) Vaccines Viral Polio, Inactivated (Salk) 49173 2014 AARON CROOK [facility] Supervised Injection Intramuscular Antibiotic Supervised Injection Intramuscular Antibiotic 84811 2014 AARON CROOK [facility] Immunization Administration One Vaccine Immunization Administration One Vaccine 49513 2014 JO CROSS [facility] Immunization Administration Each Additional Vaccine Immunization Administration Each Additional Vaccine 18865 2014 [place] [facility] Vaccines Viral Measles, Mumps and Rubella, Live Vaccines Viral Measles, Mumps and Rubella, Live 56128 2014 [place] [facility] Ophthalmological New Patient Start Intermediate Level Care Ophthalmological New Patient Start Intermediate Level Care 03926 2014 PRIS[place] DIAL [facility] Supervised Injection Intramuscular Antibiotic Supervised Injection Intramuscular Antibiotic 35577 2014 [facility] Vaccines Adenovirus Type 7 Live, For Oral Use Vaccines Adenovirus Type 7 Live, For Oral Use 20875 2014 [facility] Serum Viral Antibody Immunoblot (Western Blot) HIV 1 & 2 Serum Viral Antibody Immunoblot (Western Blot) HIV 1 & 2 82982 2014 [facility] Serum Viral Antibody Mumps Serum Viral Antibody Mumps 76027 2014 [facility] Serum Viral Antibody Rubella Serum Viral Antibody Rubella 27057 2014 [facility] Serum Viral Antibody Rubeola Serum Viral Antibody Rubeola 94054 2014 [facility] Serum Viral Antibody Varicella-Zoster Serum Viral Antibody Varicella-Zoster 67366 2014 [facility] Tdap Vaccine Seven Years Of Age And Above Tdap Vaccine Seven Years Of Age And Above 99454 2014 [facility] Hepatitis A And Hepatitis B (Intramuscular Use) Adult Dosage Hepatitis A And Hepatitis B (Intramuscular Use) Adult Dosage 06474 2014 [facility] Vaccines Adenovirus Type 4 Live, For Oral Use Vaccines Adenovirus Type 4 Live, For Oral Use 92626 2014 [facility] Venipuncture Venipuncture 54376 2014 [facility] Collection Of Capillary Blood Specimen Collection Of Capillary Blood Specimen 63079 2014 [facility] Immunization Administration One Vaccine Immunization Administration One Vaccine 56035 2014 [facility] Skin Test Anergy Tuberculin Intradermal Skin Test Anergy Tuberculin Intradermal 23593 [facility] Pneumococcal Polysaccharide Vaccine Adult Dos For Intramusc Pneumococcal Polysaccharide Vaccine Adult Dos For Intramusc 35754 2014 [facility] Meningococcal Polysaccharide Vaccine (Active) Meningococcal Polysaccharide Vaccine (Active) 02020 2014 [facility] Immunization Administration Each Additional Vaccine Immunization Administration Each Additional Vaccine 79530 2014 [facility] Supervised Injection Intramuscular Supervised Injection Intramuscular 74617 2014 [facility] Patient education, not otherwise cla ified, non-physician provider, group, per se ion DAMON RIVAS [facility] Threshold Audiogram (Pure Tone) Automated Threshold Audiogram (Pure Tone) Automated 0208T DAMON RIVAS [facility] ANTHRAX VACCINE, FOR SUBCUTANEOUS OR INTRAMUSCULAR USE 2016 [facility] DETERMINATION OF REFRACTIVE STATE 2016 DoD SKIN TEST; TUBERCULOSIS, INTRADERMAL 2016 [facility] Social History Combined list of available smoking, tobacco, and other social history from Department of Defense and Veterans Affairs facilities. Social History Type Response Date Comment Sour e Smoking Status Never (less than 100 in lifetime) 07/19/2020 Unknown Organization Sex Representation Male (finding) 03/28/2020 Un known Organization Sexual Orientation Ambula tory Pharmacy Gender identity Ambulator y Pharmacy This section is an empty social history section. [facility] Assessment and Plan Combined list of future care activities from Department of Defense and Veterans Affairs facilities (e.g., assessment and plan notes, appointments, orders, and referrals). Additional future care activities may be listed in the Plan of Care section. Result Assessment and Plan Date Source Assessment and Plan Extracted from:Title : [facility]-ePHA 2023 Author: SHERRI VARELA NP Date: 01/22/24 1.?Encounter for issue of other medical certificate Annual electronic periodic health assessment (DD Form 3024) has been reviewed by me for accuracy. [...] responsible for his/her individual medical readiness. The service center technician stated understanding.? ALISHA Ureña, [facility] Nurse Practitioner Individual Medical Readiness ? [facility] Extracted from:Title: SDA-DI PE Author: AMINAH JOHNSON PA Date: 02/26/23 1.?Encounter for other specified special examinations-SDA DI PE PT has no limiting chronic conditions.? All pmhx has been addressed and he has no concerns today.? Completed PE packet and returned to member for ADMIN dispo.? He understands all and has no further questions today. Aminah Johnson LT, MSC, USN PALynnC, MPAS, NPI-[id number] [address] [place] [address] ? ? Extracted from:Title: PHA Author: REJI SORIA PA-C Date: 11/28/22 1.?EXAM/ASSESSMENT, OCCUPATIONAL, YARN SORTER PERIODIC HEALTH ASSESSMENT (PHA) Virtual encounter for completion of Periodic Health Assessment (PHA). PHA DD Form 3027 is available for viewing?in .PDF format?at the following URL: [email or web address] ? This patient was? ?successfully contacted and their identify was confirmed. ? The service center technician? ?does not have any ongoing medical concerns. ? The service center technician is? ?fully medically ready. ? All of the patient's questions were answered. They were provided with our Refractive Surgeon contact information and informed to contact medical with any additional concerns or questions. ? A total of 15 minutes was spent going over the above information with the patient and for the coordination of follow-on care as necessary. ? ? Reji Soria Jr., [facility], CHERELLE LT, MSC, USN [facility] Surgeon [address] ? Extracted from:Title: Bilat Foot Pain Author: [...] Referral Request 2.0 Aminah Johnson LT, MSC, N CHERELLE, PATIENCE, NPI-[id number] [address] [place] [address], [place], [place] ? ? Extracted from:Title: Index Finger Verruca [...] Request 2.0 ? Aminah Johnson LT, MSC, N CHERELLE, PATIENCE, NPI-[id number] [address] [place] [address], [place], [place] ? ? Extracted from:Title: Ambulatory Patient Education [...] including vitamins, herbs, eye drops, creams, and oigy-ukx-pixcdja medicines. Any problems you or family members have had with anesthetic medicines. Any blood disorders you have. Any surgeries you have had. Any medical conditions you have. Whether you are or may be . What are the risks? Generally, this is a safe procedure. However, problems may occur, including: Infection. Bleeding. Scarring. Changes in skin color (forestry scientist or darker than normal skin tone). Swelling. [...] and water are not available, use hand reducing machine operator. ? Change your dressing as told by [...] your health care provider. General instructions Take wycx-rvf-bncktav and prescription medicines only as told by [...] provider. Document Revised: 01/18/2020 Document Reviewed: 01/18/2020 [employer] Patient Education ? 2021 [employer]. Extracted from:Title: Annual Audiogram Author: DAMON RIVAS [...] gets worse or new sx develop. ? 11/03/[address] [place] [address] Assessment and Plan Extracted from:Title : [facility]-ePHA 2023 Author: SHERRI VARELA, BILLY Date: 01/22/24 1.?Encounter for issue of other medical certificate Annual electronic periodic health assessment (DD Form 3024) has been reviewed by me for accuracy. [...] responsible for his/her individual medical readiness. The service center technician stated understanding.? Sherri Gusman. ALISHA Varela, [facility] Nurse Practitioner Individual Medical Readiness ? [facility] Extracted from:Title: SDA-DI PE Author: AMINAH JOHNSON PA Date: 02/26/23 1.?Encounter for other specified special examinations-SDA DI PE PT has no limiting chronic conditions.? All pmhx has been addressed and he has no concerns today.? Completed PE packet and returned to member for ADMIN dispo.? He understands all and has no further questions today. Aminah Johnson LT, MSC, USN CHERELLE, MPAS, NPI-[id number] [address] [place] [address] ? ? Extracted from:Title: PHA Author: REJI SORIA PA-C Date: 11/28/22 1.?EXAM/ASSESSMENT, OCCUPATIONAL, YARN SORTER PERIODIC HEALTH ASSESSMENT (PHA) Virtual encounter for completion of Periodic Health Assessment (PHA). PHA DD Form 3024 is available for viewing?in .PDF format?at the following URL: [email or web address] ? This patient was? ?successfully contacted and their identify was confirmed. ? The service center technician? ?does not have any ongoing medical concerns. ? The service center technician is? ?fully medically ready. ? All of the patient's questions were answered. They were provided with our Refractive Surgeon contact information and informed to contact medical with any additional concerns or questions. ? A total of 15 minutes was spent going over the above information with the patient and for the coordination of follow-on care as necessary. ? ? Reji Soria Jr., [facility], PAMalena LT, MSC, USN [facility] Surgeon [address] [place] [address], [address] [place] [address] ? Extracted from:Title: Bilat Foot Pain Author: [...] 2.0 Aminah Johnson LT, MSC, GLADYS VILLARREAL, AMADOUS, NPI-[id number] [address] [place] [address], [place], [place] ? ? Extracted from:Title: Index Finger Verruca [...] Request 2.0 ? Aminah Johnson LT, MSC, N CHERELLE, MPAS, NPI-[id number] [address] [place] [address], [place], [place] ? ? Extracted from:Title: Ambulatory Patient Education [...] including vitamins, herbs, eye drops, creams, and cvaj-bbw-nfvared medicines. Any problems you or family members have had with anesthetic medicines. Any blood disorders you have. Any surgeries you have had. Any medical conditions you have. Whether you are or may be . What are the risks? Generally, this is a safe procedure. However, problems may occur, including: Infection. Bleeding. Scarring. Changes in skin color (forestry scientist or darker than normal skin tone). Swelling. [...] and water are not available, use hand reducing machine operator. ? Change your dressing as told by [...] your health care provider. General instructions Take flus-qfl-ncvjofz and prescription medicines only as told by [...] provider. Document Revised: 01/18/2020 Document Reviewed: 01/18/2020 [employer] Patient Education ? 2021 [employer]. Extracted from:Title: Annual Audiogram Author: DAMON RIVAS [...] gets worse or new sx develop. ? 11/03/2024 [facility] Medical [facility] Functional Status Combined list of recent functional and cognitive assessments recorded at Department of Defense and Veterans Affairs (VA).VA Functional [place] Measurement (FIM) Scale: 1 = Total Assistance (Subject = 0% +), 2 = Maximal Assistance (Subject = 25% +), 3 = Moderate Assistance (Subject = 50% +), 4 = Minimal Assistance (Subject = 75% +), 5 = Supervision, 6 = Modified [place] (Device), 7 = Complete [place] (Timely, Safely). Assessment Date/Time Source Assessment Type Assessment Skill Assessment Score Assessment Details No data available for this section
== END 2024-11-03 10:06 | disposition home or self-care (01) ==
LOC: HO.HOS 09:31
PROVIDERS: PCP Family Medicine; Visit Provider Orthopaedic Surgery
DX: M75.20 Bicipital tendinitis, unspecified shoulder (principal)
CPT/HCPCS: 99213

== ENCOUNTER → 2024-11-03 09:31 | Outpatient (BNVA) | payer OTHER, SELFPAY | PROVIDERS: PCP Family Medicine; Visit Provider Orthopaedic Surgery | DX: M75.21 Bicipital tendinitis, right shoulder (principal) | CPT/HCPCS: 99212 ==

== ENCOUNTER → 2024-11-09 18:02 | Outpatient (BNV) | payer OTHER, SELFPAY | PROVIDERS: PCP Family Medicine; Visit Provider Radiology Diagnostic Radiology | DX: M22.2X9 Patellofemoral disorders, unspecified knee (principal) | CPT/HCPCS: 73721 ==

== ENCOUNTER 2024-11-09 18:03 | Outpatient (REF) | payer OTHER, SELFPAY ==
--- NOTE | ~2024-11-09 | MR_ITS ---
CLINICAL HISTORY: M22.2X9 - Patellofemoral disorders, unspecified knee MR right knee without gadolinium Comparison: CR/SR - XR KNEE RT 3V - 03/03/24 13:34 EDT Findings: Menisci are intact. Cruciate ligaments are intact. Collateral ligaments are intact. Small articular cartilage fissure within the trochlear sulcus. Small focus of subchondral edema involving the peripheral weight-bearing medial femoral condyle. No focal articular cartilage defects. No knee joint effusion. No Julien's cyst. Patellar retinacula and iliotibial band are intact. Quadriceps, patellar, popliteus, and flexor tendons are intact. IMPRESSION: Normal knee other than a small subchondral contusion versus degenerative edema involving the peripheral weight-bearing medial femoral condyle and a small trochlear sulcus articular cartilage fissure. This document has been electronically signed by: Caesar Price DO on 11/11/2024 09:39:57
== END 2024-11-09 18:04 | disposition home or self-care (01) ==
LOC: HO.MRI 18:03
PROVIDERS: PCP Family Medicine; Visit Provider Orthopaedic Surgery
DX: M22.2X1 Patellofemoral disorders, right knee (principal)
CPT/HCPCS: 73721

== ENCOUNTER 2024-11-24 13:56 | Outpatient (AMB) | payer OTHER, SELFPAY ==
--- NOTE | 2024-11-24 14:22 | MHC.OFFVIS ---
Intake Visit Reasons: Right Knee MRI review, Intake Note: Isaiah is a 28 year old male who presents today for a follow up / MRI review of his right knee. At his last visit it was discussed that he has right hamstring tightness and distal iliotibial band discomfort. He is also a runner and has had back spasm MPRESSION: Normal knee other than a small subchondral contusion versus degenerative edema involving the peripheral weight-bearing medial femoral condyle and a small trochlear sulcus articular cartilage fissure. Allergies No Known Allergies Allergy (Verified 04/06/24 15:40) HPI HPI Right Knee MRI review,: Details: Isaiah comes in today for review of his right knee MRI. He has an interesting situation and that he is extremely active but after about 2 miles of running he feels pain usually over the lateral aspect of the patellofemoral joint. He has been working with physical therapy on iliotibial band tightness and pelvic girdle strengthening. This has helped but he still feels limited in his ability to run for unlimited distances. PFSH Family History Father Diabetes Social History Housing: Apartment Patient Tobacco Use Status: Never used Tobacco e-Cigarette/Vaping Use: Never Used Second Hand Smoke Exposure: No service: Yes Current occupational status: employed Current occupation: [employer] Current occupational exposures/hazards: No Cognitive needs: No Hearing needs: No Vision needs: No Physical Exam Extrem Other: Right knee exam is largely unremarkable. He has excellent range of motion and good muscle development. There is no effusion. There is possibly some reproducible pain with palpation over the lateral trochlea but nothing severe and hard to reliably reproduce. Results Reviewed Results Reviewed: I personally reviewed the MR images. IMPRESSION: Normal knee other than a small subchondral contusion versus degenerative edema involving the peripheral weight-bearing medial femoral condyle and a small trochlear sulcus articular cartilage fissure. Assessment & Plan Assessment & Plan (1) Bicipital tendinitis: Code(s): M75.20 - Bicipital tendinitis, unspecified shoulder Category: Medical Plan: Ongoing shoulder bicipital tenderness. I reordered physical therapy (2) SLAP (superior glenoid labrum lesion): Code(s): S43.439A - Superior glenoid labrum lesion of unspecified shoulder, initial encounter Category: Medical Plan: PT reordered (3) Patellofemoral joint pain: Code(s): M25.569 - Pain in unspecified knee Category: Medical Plan: Patellofemoral pain with iliotibial band tightness in a very active and healthy young man. It is difficult to identify 1 etiology. The MRI is largely unremarkable with a question of fissure in the trochlear sulcus but unimpressive and the exam is equally unimpressive. Running is fine until he passes proximally the 2 mi leela and then he feels pain. I think the best course of action for him is continued pelvic girdle strengthening, iliotibial band stretching and varying of his running technique, frequency, surface and seeing if that will help him push past this to mi limitation. His knee is not swelling up and the pain is possible to reproduce at rest. I discussed this with him. I will be following up with his shoulder and we can rediscuss the knee but no acute intervention warranted at this time Orders: Orders PT Evaluation and Treatment 11/24/24 M75.20 - Bicipital tendinitis, unspecified shoulder, S43.439A - Superior glenoid labrum lesion of unspecified shoulder, initial encounter Coding Level of Care Code Est Pt Level 3 (98529) Complex EM visit Add On G2211 Diagnoses Bicipital tendinitis M75.20 SLAP (superior glenoid labrum lesion) S43.439A Patellofemoral joint pain M25.569
--- OUTSIDE RECORDS SUMMARY | 2024-11-24 16:25 | XMS_ITS | Continuity of Care Document ---
Author Name [facility] Organization [facility] Care Team Providers Care Surgical Tech Name Role Phone [facility] Unavailable Unavailable Problems Combined list of problems from Department of [facility] and [facility] Affairs facilities. It does not include entries that were removed or entered in error. Problem Status Onset Date Problem Type Date of Resolution Comments Source Encounter for issue of other medical certificate Active 01/22/2024 Diagnosis 0035C-NB [place] Encounter for other procedures for purposes other than remedying health state Active Condition [facility] LBP - Low back pain Active Condition Unknown Organization Plantar fasciitis of both feet Active Condition [address] [place] [address] Verruca vulgaris Active Condition [address] [place] [address] Medications Combined list of outpatient medications from Department of [facility] and [facility] facilities.Medications provided include 1) outpatient medications from the last 15 months, and 2) patient-reported medications. Medication Details Route Status Patient Instructions Prescription Expires Prescription Number Last Dispense Date Ordering Provider Order Date Order Qty Source Flonase 50 mcg/inh nasal spray 50 mcg, Nostril- Both, BID, # 16 g, 5 total refill(s ), Maintena nce, Pharmacy : [facility] Nostri l-Both (into the nose) Ordered 3 2022 16.0 1974C-N [address] ibuprofen 800 mg oral tablet 1 tab(s), Oral, TID, # 90 tab(s), 0 total refill(s ), Acute, 03/07/21 2:00:00 AM CDT, Pharmacy : [facility] Oral (given by mouth) Complet ed 03/07/2021 1 2020 90.0 1417C-[address] [facility] [place] PreviDent 5000 Plus topical paste See Instruct ions, Apply 1 thin ribbon to toothbru sh. [place] thorough ly twice a day. Do not rinse, eat or drink for 30 minutes. , # 51 g, 3 total refill(s ), Maintena nce, Pharmacy : [facility] Ordered 3 2022 51.0 1417C-[address] [facility] [place] ZyrTEC 10 mg oral tablet 1 tab(s), Oral, Daily, PRN allergy symptoms , # 90 tab(s), 3 total refill(s ), [facility], Pharmacy : [facility] Oral (given by mouth) Discont inued 10/02/20222022 90[address] [place] [address] ZyrTEC 10 mg oral tablet 1 tab(s), Oral, Daily, # 30 tab(s), 3 total refill(s ), [facility], Pharmacy : [facility] Oral (given by mouth) Ordered 3 [address] [place] [address] Allergies, Adverse Reactions, Alerts Combined list of allergies from Department of Defense and Veterans Affairs facilities. It does not include entries that were removed or entered in error. Substance Category Reaction Severity Reaction type Status Date Reported Comments Source No Known Allergies Drug allergy (disorder) active 04/11/2015 [facility] Immunizations Combined list of available immunizations from the Department of Defense and Veterans Affairs facilities. Immunization Series Date Given Administered By Site Reaction Lot Number CVX Code Drug Trackman Status Comments Source influenza virus vaccine, inactivated 2021 RADHANMHOANA Danielson tomy, left (delt oid) [id number] [employer], [employer] complet ed influenza virus vaccine, inactivat ed 03/31/[address] influenza virus vaccine, inactivated 2020 BRANDONABRADL PRASHANT Danielson tomy, left (delt oid) [id number] 150 GlaxoSmithKli mn complet ed influenza virus vaccine, inactivat ed 04/18/[address] COVID Vaccine Pfizer 2020 EBENEZER Danielson tomy, left (delt oid) [id number] PFIZER complet ed COVID Vaccine Pfizer 09/05/20 Given 0024C-N [facility] on COVID Vaccine Pfizer 2020 ELVA Danielson tomy, left (delt oid) [id number] PFIZER complet ed COVID Vaccine Pfizer 08/15/20 Given 1973C-N HCP 22 [facility] influenza virus vaccine, inactivated 2019 JORDAN Danielson tomy, left (delt oid) [id number] 158 Seqirus, A [employer] complet ed influenza virus vaccine, inactivat ed 05/03/20 Given 1973C-N HCP 22 [facility] influenza, injectable, quadrivalent- pf 2018 [id number] 150 Seqirus complet ed influenza , injectabl e, quadrival ent-pf 04/12/19 Given Ambulat ory Pharmac y Influenza, injectable, quadrivalent, preservative free 0 2018 [id number] 150 Seqirus (SEQ) comple t ed Influenza , injectabl e, quadrival ent, preservat federico free DoD rabies vaccine, purified chick embryo 2018 Body, whole [id number] complet ed rabies vaccine, purified chick embryo 10/12/18 Given Ambulat ory Pharmac y rabies vaccine, IM 2018 [id number] 175 Sclavo, Inc. complet ed rabies vaccine, IM 10/12/18 Given Ambulat ory Pharmac y Human Rabies vaccine from human diploid cell culture 3 2018 [id number] 175 Sclavo (SCL) complet ed Human Rabies vaccine from human diploid cell culture DoD Human rabies vaccine from Chicken fibroblast culture 3 2018 VALERIA PETER [id number] 176 Transcribed (TRS) complet ed Human rabies vaccine from Chicken fibroblas t culture DoD rabies vaccine, IM 2018 [id number] 175 Sclavo, Inc. complet ed rabies vaccine, IM 10/02/18 Given Ambulat ory Pharmac y Human Rabies vaccine from human diploid cell culture 2 2018 [id number] 175 Sclavo (SCL) complet ed Human Rabies vaccine from human diploid cell culture DoD rabies vaccine, purified chick embryo 2018 zzLef t Arm [id number] 176 complet ed rabies vaccine, purified chick embryo 09/14/18 Given Ambulat ory Pharmac y Human rabies vaccine from Chicken fibroblast culture 2 2018 VALERIA PETER [id number] 176 Transcribed (TRS) complet ed Human rabies vaccine from Chicken fibroblas t culture DoD rabies vaccine, IM 2018 [id number] 175 Sclavo, Inc. complet ed rabies vaccine, IM 09/06/18 Given Ambulat ory Pharmac y rabies vaccine, purified chick embryo 2018 zzLef t Arm [id number] 176 complet ed rabies vaccine, purified chick embryo 09/06/18 Given Ambulat ory Pharmac y Human Rabies vaccine from human diploid cell culture 1 2018 [id number] 175 Sclavo (SCL) complet ed Human Rabies vaccine from human diploid cell culture DoD Human rabies vaccine from Chicken fibroblast culture 1 2018 VALERIA PETER [id number] 176 Transcribed (TRS) complet ed Human rabies vaccine from Chicken fibroblas t culture DoD anthrax vaccine 2016 zzLef t Arm [id number] Emergent Biosolutions complet ed anthrax vaccine 08/05/16 Given Ambulat ory Pharmac y anthrax vaccine 1 2016 JACKLYN MARTINEZ N [id number] [employer] [place] (MIP) complet ed anthrax vaccine DoD tuberculin purified protein derivative 2016 zzLef t Arm [id number] Unknown complet ed tuberculi n purified protein derivativ e 06/19/16 Given Ambulat ory Pharmac y tuberculin skin test; purified protein derivative solution, intradermal 1 2016 JACKLYN MARTINEZ N [id number] 96 Other (OTH) complet ed tuberculi n [...] free DoD hepatitis A-hepatitis B vaccine 2015 [id number] 104 GlaxoSmithKli ne complet ed hepatitis A-hepatit [...] A and hepatitis B vaccine 3 2015 [id number] 104 [facility] ([facility]) complet ed hepatitis A and hepatitis B vaccine DoD varicella virus vaccine 2014 [id number] 21 Merck & Company Inc complet ed varicella virus vaccine 06/11/15 Given Ambulat ory Pharmac y measles/mumps /rubella virus vaccine 2014 [id number] 03 Merck & Company Inc complet ed measles/m umps/rube lla virus vaccine 06/11/15 Given Ambulat ory Pharmac y yellow fever vaccine 2014 [id number] 37 sanofi pasteur complet ed yellow fever vaccine 06/11/15 Given Ambulat ory Pharmac y measles, mumps and rubella virus vaccine 0 2014 [id number] 03 Merck (MSD) complet ed measles, mumps and rubella virus vaccine DoD varicella virus vaccine 2 2014 [id number] 21 Merck (MSD) complet ed varicella virus vaccine DoD yellow fever vaccine 0 2014 [id number] 37 Sanofi Pasteur (PMC) complet ed yellow fever vaccine DoD hepatitis A-hepatitis B vaccine 2014 [id number] 104 GlaxoSmithKli ne complet ed hepatitis A-hepatit is B vaccine 05/11/15 Given Ambulat ory Pharmac y poliovirus vaccine, inactivated 2014 [id number] 10 sanofi pasteur complet ed polioviru s vaccine, inactivat ed 05/11/15 Given Ambulat ory Pharmac y poliovirus vaccine, inactivated 0 2014 [id number] 10 Sanofi Pasteur (PMC) complet ed polioviru s vaccine, inactivat ed DoD hepatitis A and hepatitis B vaccine 2 2014 [id number] 104 [facility] ([facility] complet ed hepatitis A and hepatitis B vaccine DoD varicella virus vaccine 2014 [id number] 21 Merck & Company Inc complet ed varicella virus vaccine 04/19/15 Given Ambulat ory Pharmac y measles/mumps /rubella virus vaccine 2014 [id number] 03 Merck & Company Inc complet ed measles/m umps/rube lla virus vaccine 04/19/15 Given Ambulat ory Pharmac y measles, mumps and rubella virus vaccine 0 2014 [id number] 03 Merck (MSD) complet ed measles, mumps and rubella virus vaccine DoD varicella virus vaccine 1 2014 [id number] 21 Merck (MSD) complet ed varicella virus vaccine DoD tetanus, diphtheria, acellular pertu is 2014 [id number] 115 sanofi pasteur complet ed tetanus, diphtheri a, acellular pertussis 04/11/15 Given Ambulat ory Pharmac y hepatitis A-hepatitis B vaccine 2014 [id number] 104 DepartingKli mn complet ed hepatitis A-hepatit is B vaccine 04/11/15 Given Ambulat ory Pharmac y pneumococcal polysaccharid e, 23 valent 2014 [id number] 33 Merck & Company Inc complet ed pneumococ peter polysacch aride, 23 valent 04/11/15 Given Ambulat ory Pharmac y influenza, injectable, quadrivalent- pf 2014 [id number] 150 Moment[employer]amm[employer] Inc comple t ed influenza , injectabl e, quadrival ent-pf 04/11/15 Given Ambulat ory Pharmac y adenovirus vaccine, live 2014 [id number] 143 Teva Pharmaceutica complet ed adenoviru s vaccine, live 04/11/15 Given Ambulat ory Pharmac y meningococcal A,C,Y,W-135 (MCV4P) 2014 [id number] 114 sanofi pasteur complet ed meningoco ccal A,C,Y,W-1 35 (MCV4P) 04/11/15 Given Ambulat ory Pharmac y pneumococcal polysaccharid e vaccine, 23 valent 0 2014 [id number] 33 Merck (MSD) complet ed pneumococ peter polysacch aride vaccine, 23 valent DoD hepatitis A and hepatitis B vaccine 1 2014 [id number] 104 Solarus (SKB) complet ed hepatitis A and hepatitis B vaccine DoD meningococcal polysaccharid e (groups A, C, Y and W-135) diphtheria toxoid conjugate vaccine (MCV4P) 0 2014 [id number] 114 Sanofi Pasteur ([facility]) complet ed meningoco ccal polysacch aride (groups A, C, Y and W-135) diphtheri a toxoid conjugate vaccine (MCV4P) DoD tetanus toxoid, reduced diphtheria toxoid, and acellular pertu is vaccine, adsorbed 0 2014 [id number] 115 Sanofi Pasteur (PMC) complet ed tetanus toxoid, reduced diphtheri a toxoid, and acellular pertussis vaccine, adsorbed DoD Adenovirus, type 4 and type 7, live, oral 0 2014 [id number] 143 BidModo (BRR) complet ed Adenoviru s, type 4 and type 7, live, oral DoD Influenza, injectable, quadrivalent, preservative free 0 2014 [id number] 150 Evolita. (MED) complet ed Influenza , injectabl e, [...] Force Test (02/25/23 11:56 AM) [facility] HIV-1/2 AG/AB 4G CDD LC NEGATIVE 02/25 Result Comment: Performed At: 1 [facility] [address] [facility] [address] [place] [address] MALINA CHRISTY PHD Ph:[phone] 63 [facility] Molecular Infectiou s Disease Reason for Test? Screening (07/15/21 12:24 PM) 07[facility]15 [facility] [place] [facility] Infectiou s Disease SARS-CoV -2, KAYLEN LC Detected 07/15 A Result Comment: Patients who have a positive COVID-19 test result may now have treatment options. Treatment options are available for patients with mild to moderate symptoms and for hospitalize d patients. Visit our website at [email or web address] for resources and information . This nucleic acid amplificati on test was developed and its performance characteris tics determined by [employer]. Nucleic acid amplificati on tests [...] result in this assay. Performed At: 01 [facility] [address] [facility], [place] [id number] Rodolfo Lamaspayton Pat [facility] Ph:[phone] [address] [place] [address] Infectiou s Disease Source of Test.LC Phys Exam (06/26/21 3:08 PM) 06/[address] [place] [address] [facility] Disease HIV-1/2 AG/AB 4G CDD LC NEGATIVE 06/26 Result Comment: Performed At: 1 [facility] [address] [facility] [address] [place] [address] MALINA RAYMONDN PHD Ph:[phone] [address] [place] [address] Vital Signs Combined list of inpatient and outpatient Vital Signs from Department of Defense and Veterans Affairs, ranging from 12 months to all on record, depending upon the facility. Vital Sign Value Date Comments Source Blood Pressure Manual Automatic 02/26/2023 15:52:[address] [place] [address] [facility] Mean Arterial Pressure, Calc 86 mm[Hg] 02/26/2023 15:52:00 [facility] Systolic Blood Pressure 127 mm[Hg] 02/27/20 15:52:00 1973[facility] Diastolic Blood Pressure 66 mm[Hg] 023 15:52:00 1973[facility] Peripheral Pulse Rate 59 bpm 02/26/2023 15:52:00 1973[facility] Respiratory Rate 16 br/min 02/26/2023 15:52:00 1973[facility] BP Site Left arm 02/26/2023 15:52:00 1973[facility] Temperature Tympanic 36.8 Doris 02/26/2023 15:52:00 1973[facility] Mean Arterial Pressure, Calc 94 mm[Hg] 07/03/2021 17:31:00 1973[facility] Systolic Blood Pressure 134 mm[Hg] 07/03/19 17:31:00 1973[facility] Diastolic Blood Pressure 74 mm[Hg] 022 17:31:00 1973[facility] Respiratory Rate 16 br/min 07/03/2021 17:31:00 1973[facility] Peripheral Pulse Rate 66 bpm 07/03/2021 17:31:00 1973[facility] Peripheral Pulse Rate 64 bpm 07/19/2020 19:07:00 1973[facility] 22 [facility] Respiratory Rate 16 br/min 07/19/2020 19:07:00 1973[facility] Temperature Oral 37.5 Doris 07/19/2020 19:07:00 1973[facility] 22 [facility] BP Site Right arm 07/19/2020 19:07:00 1973[facility] 22 [facility] Systolic Blood Pressure 136 mm[Hg] 07/19/19 21 19:07:00 [facility] 22 [facility] Diastolic Blood Pressure 80 mmol 021 19:07:[address] [place] [address] 22 [facility] Mean Arterial Pressure, Calc 99 mm[Hg] 07/19/2020 19:07:[address] [place] [address] [facility] Blood Pressure Manual Automatic 07/19/2020 19:07:00 1973[facility] Temperature Oral 37 Doris 11/05/2022 17:33:00 1973[facility] Systolic Blood Pressure 120 mm[Hg] 11/06/19 23 17:33:00 1973[facility] Diastolic Blood Pressure 72 mm[Hg] 023 17:33:00 1973[facility] Blood Pressure Manual Automatic 11/05/2022 17:33:[address] [place] [address] [facility] BP Site Left arm 11/05/2022 17:33:00 1973[facility] Respiratory Rate 16 br/min 11/05/2022 17:33:00 1973[facility] Peripheral Pulse Rate 62 bpm 11/05/2022 17:33:[address] [place] [address] [facility] Mean Arterial Pressure, Calc 88 mm[Hg] 11/05/2022 17:33:00 [facility] Temperature Temporal Artery 36.4 Doris 11/06/2022 16:41:00 1973[facility] Systolic Blood Pressure 116 mm[Hg] 11/07/19 16:41:[address] [place] [address] [facility] Diastolic Blood Pressure 76 mm[Hg] 023 16:41:[address] [place] [address] Medical Clinic Respiratory Rate 16 br/min 11/06/2022 16:41:[address] [facility] Peripheral Pulse Rate 57 bpm 11/06/2022 16:41:[address] [place] [address] Medical Clinic BP Site Left arm 11/06/2022 16:41:[address] [place] [address] Medical [facility] Mean Arterial Pressure, Calc 89 mm[Hg] 11/06/2022 16:41:[address] [place] [address] Medical Clinic Blood Pressure Manual Automatic 11/06/2022 16:41:[address] [place] [address] Medical Clinic Encounters Combined list of: 1) Encounters from Department of Veterans Affairs facilities going backup to the last 18 months, not all VA inpatient encounters are included; 2) Encounters from the Department of Defense facilities going backup to 280 months. Location Location Details Encounter Type Encounter Number Reason For Visit Attending Provider ADM Date DC Date Status Disposition Source [facility](MCR D Recruit Processin g) OUTPATIENT [id number] Notes Entered by: Florian DOMINGO 10 Apr 2015 1238 ------- ------- ------- ------- -- MOT NORRIS STONE 04/10 Released w/o Limitations [facility](M CRD Recruit Process ing) [facility](MCR D Optometry ) OUTPATIENT [id number] Notes Entered by: PRISCA DIAL 12 Apr 2015 0857 ------- ------- ------- ------- -- RECRUIT PAUL BARRERA 04/12 Released w/o Limitations [facility](M CRD Optomet ry) [facility](MCR D Recruit Processin g) OUTPATIENT [id number] VACCINE S JOSE ELIAS CHAIREZ T 04/19 Released w/o Limitations [facility](M CRD Recruit Process ing) [facility](MCR D Recruit Processin g) OUTPATIENT [id number] T22 VACCINE S DRE AHUMADA W 05/11 Released w/o Limitations [facility](M CRD Recruit Process ing) [facility](MCR D Recruit Processin g) OUTPATIENT [id number] T48 VACCINE S DRE AHUMADA W 06/12 Released w/o Limitations [facility](M CRD Recruit Process ing) [facility](MCR D Recruit Sick Call) OUTPATIENT [id number] Notes Entered by: JANNA CHURCHILL 13 Jun 2015 1302 ------- ------- ------- ------- -- FLU JAYJAY WINSTON 06/13 Released w/o Limitations [facility](M CRD Recruit Sick Call) [place] JANNETTE Rivera(52 ABC FP MHP) OUTPATIENT [id number] SARA Quick 07/18 Released w/o Limitations [facility] [place], [place](52 ABC FP MHP) [facility](43 Area [facility] 140) OUTPATIENT [id number] Notes Entered by: MARY ARCOS 02 Oct 2015 1524 ------- ------- ------- ------- -- CECILIO ANNE 10/01 Released w/o Limitations [facility](4 3 Area [facility] 140) [facility](CP Hearing Conservat ion Clinic) OUTPATIENT [id number] Notes Entered by: Dominique SHEPARD 02 Nov 2015 0836 ------- ------- ------- ------- -- ANNUAL AUDIOGR AM (P) ELEANOR SHEPARD 11/01 Released w/o Limitations [facility](C P Hearing Conserv ation Clinic) [facility](43 Area [facility] 140) OUTPATIENT [id number] Notes Entered by: BREE CROOK 10 Apr 2016 0846 ------- ------- ------- ------- -- FLU VACCINE DOS 016 ALEXANDER CROOK 04/10 Released w/o Limitations [facility](4 3 Area [facility] 140) [facility](43 Area [place] [address]) OUTPATIENT [id number] MSG PHYSICA [id number] DARLENE HUBBARD 04/14 Released w/o Limitations [facility](4 3 Area [place] [address]) [facility], [place] [place] OUT[facility]IENT [id number] Notes Entered by: ANDERS SHAW 19 Jun 2016 0815 ------- ------- ------- ------- -- PPD (MSG) JACKLYN MARTINEZ 06/19 Released w/o Limitations [facility]( [facility], [place] [place]) [facility](Op [facility]metry [facility] [place]) OUTPATIENT [id number] Notes Entered by: MARTIN GARCIA 19 Jun 2016 0949 ------- ------- ------- ------- -- msg GAN RICK L 06/19 Released w/o Limitations [facility]( Optomet ry [facility] [place] [facility]) [facility](De ployment Health Qu) OUTPATIENT [id number] MSG PHASE 1 EDUARDO CHAPARRODEANNE Hatfield 06/19 Released w/o Limitations [facility]( Deploym ent Health Qu) [facility](He alth Prom, [facility], [place]) OUTPATIENT [id number] Notes Entered by: ANNETTA ROE 05 Aug 2016 1341 ------- ------- ------- ------- -- ANTHRAX #1 (MSG) JACKLYN MARTINEZ 08/05 Released w/o Limitations [facility]( [facility] [place]) [facility](De ployment Health Qu) OUTPATIENT [id number] MSG PHASE 2 ALBERTO KWAN 08/05 Released w/o Limitations [facility]( Deploym ent Health Qu) [facility](22A saad Hearing Conservat ion) OUTPATIENT [id number] ANNUAL AUDIO DAMON RIVAS 05/17 Released w/o Limitations [facility](2 2Area Hearing Conserv ation) [facility](22 Area [facility] [employer] [place]) OUTPATIENT [id number] PHA TREVOR BARBOSA 06/03 Released w/o Limitations [facility](2 2 Area [facility] [employer]) [id number] er for issue of other medical certifi leatha YOO 01/21 Discharge Disposition: Home or Self Care 0035C-N [facility] Procedures Combined list of: 1) Procedures from Department of Veterans Affairs facilities going back [facility], not all VA non-surgical procedures are included; 2) All procedures from the Department of Defense facilities. Procedure Procedure Type Code Date Perfomer Comments Sourc e ANTHRAX VACCINE, FOR SUBCUTANEOUS OR INTRAMUSCULAR USE 2016 [facility] DETERMINATION OF REFRACTIVE STATE 2016 [facility] SKIN TEST; TUBERCULOSIS, INTRADERMAL 2016 [facility] ADMINISTRATION OF PATIENT-FOCUSED HEALTH RISK ASSESSMENT INSTRUMENT (EG, HEALTH HAZARD APPRAISAL) WITH SCORING AND DOCUMENTATION, PER STANDARDIZED INSTRUMENT 2018 [facility] PURE TONE AUDIOMETRY (THRESHOLD), AUTOMATED; AIR ONLY 2018 [facility] INFLUENZA VIRUS VACCINE, QUADRIVALENT (IIV4), SPLIT VIRUS, PRESERVATIVE FREE, 0.5 ML DOSAGE, FOR INTRAMUSCULAR USE 2015 [facility] PURE TONE AUDIOMETRY (THRESHOLD), AUTOMATED; AIR ONLY 2015 [facility] SCREENING TEST OF VISUAL ACUITY, QUANTITATIVE, BILATERAL 2015 [facility] VARICELLA VIRUS VACCINE (JOSE JUAN), LIVE, FOR SUBCUTANEOUS USE 2014 [facility] IMMUNIZATION ADMINISTRATION (INCLUDES PERCUTANEOUS, INTRADERMAL, SUBCUTANEOUS, OR INTRAMUSCULAR INJECTIONS); EACH ADDITIONAL VACCINE (SINGLE OR COMBINATION VACCINE/TOXOID) 2014 [facility] MEASLES, MUMPS AND RUBELLA VIRUS VACCINE (MMR), LIVE, FOR SUBCUTANEOUS USE 2014 [facility] OPHTHALMOLOGICAL SERVICES: MEDICAL EXAMINATION AND EVALUATION WITH INITIATION OF DIAGNOSTIC AND TREATMENT PROGRAM; INTERMEDIATE, NEW PATIENT 2014 [facility] THERAPEUTIC, PROPHYLACTIC, OR DIAGNOSTIC INJECTION (SPECIFY SUBSTANCE OR DRUG); SUBCUTANEOUS OR INTRAMUSCULAR 2014 [facility] Immunization Administration One Vaccine Immunization Administration One Vaccine [id number] 2016 JACKLYN MARTINEZ [facility] Ophthalmological New Patient Start [facility] Ophthalmological New Patient Start Comprehensive Care 46777 2016 ANDRES DUONG [facility] Determination Of Refractive State Determination Of Refractive State 05981 2016 [facility] DU[facility] Skin Test Anergy Tuberculin Intradermal Skin Test Anergy Tuberculin Intradermal 42903 2016 JACKLYN MARTINEZ IPPD; Series #: 1; .1 mL; ID; Left Arm; Mfg: Other; Lot: [id number]; VIS given. DoD Immunization Administration One Vaccine Immunization Administration One Vaccine 13172 2015 ALEXANDER CROOK [facility] Threshold Audiogram (Pure Tone) Automated Threshold Audiogram (Pure Tone) Automated [id number] 2015 ELEANOR SHEPARD [facility] Patient education, not otherwise cla ified, non-physician provider, group, per se ion 2015 ELEANOR SHEPARD [facility] Screening Test Of Visual Acuity, Quantitative, Bilateral Screening Test Of Visual Acuity, Quantitative, Bilateral [address] Supervised Injection Intramuscular Supervised Injection Intramuscular 32962 2015 SWAPNA TRAORE [facility] Vaccines Viral Measles, Mumps and Rubella, Live Vaccines Viral Measles, Mumps and Rubella, Live 77965 2014 JAVIER CAO [facility] Immunization Administration One Vaccine Immunization Administration One Vaccine 59299 2014 JAVIER CAO Vaccines Viral Yellow Fever Vaccines Viral Yellow Fever [address] Supervised Injection Intramuscular Antibiotic Supervised Injection Intramuscular Antibiotic 93369 2014 JAVIER CAO Immunization Administration Each Additional Vaccine Immunization Administration Each Additional Vaccine 43566 2014 JAVIER CAO Immunization Administration One Vaccine Immunization Administration One Vaccine 42450 2014 AARON CROOK [facility] Immunization Administration Each Additional Vaccine Immunization Administration Each Additional Vaccine 19907 2014 AARON CROOK Hepatitis A And Hepatitis B (Intramuscular Use) Adult Dosage Hepatitis A And Hepatitis B (Intramuscular Use) Adult Dosage 65449 2014 AARON CROOK [facility] Vaccines Viral Polio, Inactivated (Salk) Vaccines Viral Polio, Inactivated (Salk) [address] Supervised Injection Intramuscular Antibiotic Supervised Injection Intramuscular Antibiotic 53901 2014 AARON CROOK [facility] Immunization Administration One Vaccine Immunization Administration One Vaccine 63502 2014 [facility] Each Additional Vaccine Immunization Administration Each Additional Vaccine 27643 2014 JO CROSS [facility] Vaccines Viral Measles, Mumps and Rubella, Live Vaccines Viral Measles, Mumps and Rubella, Live 40162 2014 JO CROSS [facility] Ophthalmological New Patient Start Intermediate Level Care Ophthalmological New Patient Start Intermediate Level Care [address] Supervised Injection Intramuscular Antibiotic Supervised Injection Intramuscular Antibiotic 65337 2014 [facility] [place] Vaccines Adenovirus Type 7 Live, For Oral Use Vaccines Adenovirus Type 7 Live, For Oral Use 09966 2014 [facility] [place] Serum Viral Antibody Immunoblot (Western Blot) HIV 1 & 2 Serum Viral Antibody Immunoblot (Western Blot) HIV 1 & 2 66980 2014 [facility] [place] Serum Viral Antibody Mumps Serum Viral Antibody Mumps 44292 2014 [facility] Antib[facility] Rubella Serum Viral Antibody Rubella 58822 [facility] Serum Viral Antibody Rubeola Serum Viral Antibody Rubeola 98969 2014 [facility] [place] Serum Viral Antibody Varicella-Zoster Serum Viral Antibody Varicella-Zoster 79039 2014 [facility] [place] Tdap Vaccine Seven Years Of Age And Above Tdap Vaccine Seven Years Of Age And Above 78608 2014 [facility] [place] Hepatitis A And Hepatitis B (Intramuscular Use) Adult Dosage Hepatitis A And Hepatitis B (Intramuscular Use) Adult Dosage 58552 2014 [facility] [place] Vaccines Adenovirus Type 4 Live, For Oral Use Vaccines Adenovirus Type 4 Live, For Oral Use 52432 2014 [facility] [place] Venipuncture Venipuncture 12545 2014 [facility] [place] Collection Of Capillary Blood Specimen Collection Of Capillary Blood Specimen 09461 2014 [facility] [place] Immunization Administration One Vaccine Immunization Administration One Vaccine 87362 2014 [facility] [place] Skin Test Anergy Tuberculin Intradermal Skin Test Anergy Tuberculin Intradermal 77052 2014 [facility] [place] Pneumococcal Polysaccharide Vaccine Adult Dos For Intramusc Pneumococcal Polysaccharide Vaccine Adult Dos For Intramusc 97425 2014 [facility] [place] Meningococcal Polysaccharide Vaccine (Active) Meningococcal Polysaccharide Vaccine (Active) 95720 2014 DANIELLE, EDUARDOWENDI BOWERS [facility] Immunization Administration Each Additional Vaccine Immunization Administration Each Additional Vaccine 19243 2014 GABINO DANIELLE [facility] Supervised Injection Intramuscular Supervised Injection Intramuscular 48055 2014 GABINO DANIELLE [facility] Patient education, not otherwise cla ified, non-physician provider, group, per se ion DAMON RIVAS Threshold Audiogram (Pure Tone) Automated Threshold Audiogram (Pure Tone) Automated [id number] DAMON RIVAS [facility] No data available for this section Ambulato [...] section is an empty social history section. [facility] Sexual Orientation Ambula tory Pharmacy Gender identity Ambulator y Pharmacy Assessment and Plan Combined list of future care activities from Department of Defense and Veterans Affairs facilities (e.g., assessment and plan notes, appointments, orders, and referrals). Additional future care activities may be listed in the Plan of Care section. Result Assessment and Plan Date Source Assessment and Plan Extracted from:Title : [facility] 2023 Author: SHERRI VARELA NP Date: 01/22/24 1.?Encounter for issue of other medical certificate Annual electronic periodic health assessment (DD Form 5952) has been reviewed by me for accuracy. [...] responsible for his/her individual medical readiness. The instructor trainer canine service stated understanding.? Sherri Gusman. ALISHA Varela, Mendez [...] Aminah Johnson LT, MSC, N CHERELLE, MPAS, NPI-[id number] [address] [place] [address] ? ? 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 PHA DD Form 3024 is available for viewing?in .PDF format?at the following URL: [email or web address] ? This patient was? ?successfully contacted and their identify was confirmed. ? The instructor trainer canine service? ?does not have any ongoing medical concerns. ? The instructor trainer canine service is? ?fully medically ready. ? All of the patient's questions were answered. They were provided with our Stone [employer] Con[employer] Washer contact information and informed to contact medical with any additional concerns or questions. ? A total of 15 minutes was spent going over the above information with the patient and for the coordination of follow-on care as necessary. ? ? Reji Soria Jr., [facility], CHERELLE LT, MSC, USN [facility] Surgeon [address] [facility], [address] [place] [address] ? Extracted from:Title: Bilat Foot Pain Author: [...] 2.0 Aminah Johnson LT, MSC, USN CHERELLE, [facility], NPI-[id number] [address] [place] [address], [place], [place] ? ? Extracted from:Title: Index Finger [...] ? Aminah Johnson LT, MSC, USN JOVANYC, [facility], [facility]-[id number] [address] [place] [address] ? ? Extracted from:Title: Ambulatory Patient Education [...] including vitamins, herbs, eye drops, creams, and qcno-umt-brijfug medicines. Any problems you or family members have had with anesthetic medicines. Any blood disorders you have. Any surgeries you have had. Any medical conditions you have. Whether you are or may be . What are the risks? Generally, this is a safe procedure. However, problems may occur, including: Infection. Bleeding. Scarring. Changes in skin color (kitchenhand or darker than normal skin tone). Swelling. [...] and water are not available, use hand commercial illustrator. ? Change your dressing as told by [...] your health care provider. General instructions Take hvis-ssm-mwflrxo and prescription medicines only as told by [...] provider. Document Revised: 01/18/2020 Document Reviewed: 01/18/2020 [employer] Patient Education ? 2021 b-datum. Extracted from:Title: Annual Audiogram Author: DAMON RIVAS [...] gets worse or new sx develop. ? 11/24/[address] [place] [address] Assessment and Plan Extracted from:Title : [facility] 2023 Author: SHERRI VARELA NP Date: 01/22/24 1.?Encounter for issue of other medical certificate Annual electronic periodic health assessment (DD Form 3027) has been reviewed by me for accuracy. [...] responsible for his/her individual medical readiness. The instructor trainer canine service stated understanding.? Sherri Gusman. ALISHA Varela, [facility] Nurse Practitioner Individual Medical Readiness ? ACE [...] Aminah Johnson LT MSC, GLADYS VILLARREAL, PATIENCE, NPI-[id number] [address] [place] [address], [place], [place] ? ? 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 PHA DD Form 3024 is available for viewing?in .PDF format?at the following URL: [email or web address] ? This patient was? ?successfully contacted and their identify was confirmed. ? The instructor trainer canine service? ?does not have any ongoing medical concerns. ? The instructor trainer canine service is? ?fully medically ready. ? All of the patient's questions were answered. They were provided with our Stone And Concrete Washer contact information and informed to contact medical with any additional concerns or questions. ? A total of 15 minutes was spent going over the above information with the patient and for the coordination of follow-on care as necessary. ? ? Reji Soria Jr., [facility], CHERELLE KONG, MSC, N [facility] Surgeon [address] [facility], 1st [facility] ? Extracted from:Title: Bilat Foot Pain Author: [...] Aminah Johnson LT, MSC, GLADYS VILLARREAL, PATIENCE, NPI-[id number] [address] [place] [address], [place], [place] ? ? Extracted from:Title: Index Finger Verruca [...] Aminah Johnson LT, MSC, USN PALynnC, MPAS, NPI-[id number] [address] [place] [address] ? ? Extracted from:Title: Ambulatory Patient Education [...] including vitamins, herbs, eye drops, creams, and vksh-tpl-rlzwdng medicines. Any problems you or family members have had with anesthetic medicines. Any blood disorders you have. Any surgeries you have had. Any medical conditions you have. Whether you are or may be . What are the risks? Generally, this is a safe procedure. However, problems may occur, including: Infection. Bleeding. Scarring. Changes in skin color (kitchenhand or darker than normal skin tone). Swelling. [...] and water are not available, use hand commercial illustrator. ? Change your dressing as told by [...] your health care provider. General instructions Take rvtk-yqq-aevbwdo and prescription medicines only as told by [...] provider. Document Revised: 01/18/2020 Document Reviewed: 01/18/2020 [employer] Patient Education ? 2021 b-datum. Extracted from:Title: Annual Audiogram Author: DAMON RIVAS [...] gets worse or new sx develop. ? 11/24/[address] [place] [address] 22 [facility] Functional Status Combined list of recent functional and cognitive assessments recorded at Department of Defense and Veterans Affairs (VA).VA Functional Garrard Measurement (FIM) Scale: 1 = Total Assistance (Subject = 0% +), 2 = Maximal Assistance (Subject = 25% +), 3 = Moderate Assistance (Subject = 50% +), 4 = Minimal Assistance (Subject = 75% +), 5 = Supervision, 6 = Modified Garrard (Device), 7 = Complete Garrard (Timely, Safely). Assessment Date/Time Source Assessment Type Assessment Skill Assessment Score Assessment Details No data available for this section
== END 2024-11-24 14:47 | disposition home or self-care (01) ==
LOC: HO.HOS 13:57
PROVIDERS: PCP Family Medicine; Visit Provider Orthopaedic Surgery
DX: M75.21 Bicipital tendinitis, right shoulder (principal); S43.431A Superior glenoid labrum lesion of right shoulder, initial encounter; M25.561 Pain in right knee
CPT/HCPCS: 99213; G2211

== ENCOUNTER → 2024-11-24 13:56 | Outpatient (BNVA) | payer OTHER, SELFPAY | PROVIDERS: PCP Family Medicine; Visit Provider Orthopaedic Surgery | DX: S43.439D Superior glenoid labrum lesion of unspecified shoulder, subsequent encounter (principal); M75.20 Bicipital tendinitis, unspecified shoulder; M25.569 Pain in unspecified knee | CPT/HCPCS: 99212 ==

== ENCOUNTER 2025-04-13 13:55 | Outpatient (RCR) | payer OTHER, SELFPAY ==
--- NOTE | 2025-01-16 13:05 | MHC.PT.EP ---
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 HE IS RIGHT HAND DOMINANT. OBJECTIVE FINDINGS: PAIN W Rt SH HORIZ ADD/ ABD/ IR POSTERIOR W END RANGE STRENGTH DEFICITS; MUSCULAR IMBALANCE-> PECT DOMINANCE, AND SXS W FUNCTIONAL TASKS (PUSHING, LIFTING, SLEEPING, AND GYM WORKOUTS. HE WOULD BENEFIT FROM PT TO ADDRESS END ROM Rt SH , MUSCULAR IMBALANCE Rt SH COMPLEX, AND SX REDUCTION VIA EDUC RE PROTECTIVE FITNESS TRAINING. WE DISCUSSED POC AND Pt IS MOTIVATED TO PROCEED. Frequency and Duration: The patient will be seen 2 x WK x 4 WKS Short Term Goals: *DECR Rt SH PAIN TO 2-3/10 *IMPROVE END ROM Rt SH/ REDUCE PECT / ANT SH TISSUE TENSION *EDUC RE SHOULDER PROTECTION W FITNESS ROUTINE/ FITNESS TESTING FOR WORK *SH COMPLEX STRENGTHENING Pathology Laboratory Director Goals: *Pt INDEP W HEP AND SELF SX MGMT TECHN-> IMPROVED NEUROMUSCULAR CONTROL *IMPROVED SLEEP *IMPROVED SPADI, AT EVAL, 29/130 *FULL STRENGTH Rt SH W/O SIGNS OF FATIGUE W MMT Treatment Plan: Modalities to reduce pain, spasms and effusion. Manual therapy to restore motion and function. Therapeutic exercise to improve strength and flexibility. Neuromuscular re-education for posture and balance. Therapeutic activities to return to functional activities of daily living. Electronically signed by: MENG HEDRICKPT Please sign and return to therapist. Thank you for your referral.
--- NOTE | 2025-04-13 15:06 | MHC.PT.DC ---
[facility] [place] Office [place] Office [place] Office [address] [place] [address] [phone] F: [phone] F: [phone] F: [phone] F: [phone] Physical Therapy Discharge Report Diagnosis: RIGHT BICIPITAL TENDONITIS, SLAP/ SUPERIOR GLENOID LABRUM LESION Date of Surgery: Date of Evaluation: 01/16/25 Date of Discharge: 04/13/25 Treatments to Date: 15 Cancellations to Date: 2 No Shows to Date: Discharge Status: Improved Function Independent with HEP Discharge Summary: CHRISTY HAS PROGRESSED IN PT IN REGARDS TO FULL AROM, IMPROVED SCAP STAB/ REDUCED PECT DOMINANCE/ INCREASED DYNAMIC STAB IN Rt GH Jt/ RESUMED REG ADLs AND WORK, BUT HAS DECR HIS GYM WORKOUTS FOR Rt SH - HIS SUBJECTIVE PAIN IN Rt SH CURRENTLY RANGES FROM 4-6/10 DEEP IN THE Rt SH JOINT. HE HAS MET MAJORITY OF PT GOALS, EXCEPT FOR PAIN GOAL. HE HAS A THOROUGH HEP, WITH WHICH HE REMAINS COMPLIANT. TODAY AT D/C, SPADI SCORE IS 34/130 ( AT EVAL , 29/130). HE HAS AN ORTHO F/U 05/15/[address] BIANCHI. Electronically signed by: MENG HEDRICK,PT Please sign and return to therapist. Thank you for your referral.
== END 2025-04-13 15:07 | disposition home or self-care (01) ==
LOC: HO.PT 13:55
PROVIDERS: PCP Family Medicine; Visit Provider Orthopaedic Surgery
DX: M75.20 Bicipital tendinitis, unspecified shoulder (principal); S43.439D Superior glenoid labrum lesion of unspecified shoulder, subsequent encounter
CPT/HCPCS: 97033; 97110; 97112; 97140; 97161

== ENCOUNTER 2025-05-15 14:34 | Outpatient (AMB) | payer OTHER, SELFPAY ==
--- NOTE | 2025-05-15 14:36 | MHC.OFFVIS ---
Intake Visit Reasons: OV - Right Bicipital Tendonitis Intake Note: Isaiah is a 29 year old right hand dominant male who presents today for a follow up of his Right Bicipital Tendonitis. Patient has completed physical therapy at [facility]. Patient reports that he has finished physical therapy. He feels that he has not made any significant improvements He is interested in having an MRI and possibly an injection but would like more information about injections. Allergies No Known Allergies Allergy (Verified 05/15/25 14:37) HPI HPI OV - Right Bicipital Tendonitis: Details: Isaiah is a 29 year old right hand dominant male who presents today for a follow up of his Right Bicipital Tendonitis. Patient has completed physical therapy at [facility]. Patient reports that he has finished physical therapy. He feels that he has not made any significant improvements He is interested in having an MRI and possibly an injection but would like more information about injections. PFSH Family History Father Diabetes Social History Housing: Apartment Patient Tobacco Use Status: Never used Tobacco e-Cigarette/Vaping Use: Never Used Second Hand Smoke Exposure: No service: Yes Current occupational status: employed Current occupation: [employer] Current occupational exposures/hazards: No Cognitive needs: No Hearing needs: No Vision needs: No Physical Exam Exam Exam: NAD Full range of motion Positive crank Positive Beckham's Negative empty can Mildly positive Lopez Negative Neer Assessment & Plan Assessment & Plan (1) Internal derangement of right shoulder: Code(s): M24.811 - Other specific joint derangements of right shoulder, not elsewhere classified Category: Medical Plan: 29-year-old active gentleman with ongoing right shoulder pain. He has significant pain when he is doing any lifting away from his body. The only way that this improves as with activity modification. He has tried extensive physical therapy and activity modification and still continues to be limited. He has problems sleeping at night occasionally and I think it is reasonable to get an MRI with contrast. I would also image a CASSI sequence as he has signs and symptoms of the SLAP tear. (2) SLAP (superior glenoid labrum lesion): Code(s): S43.439A - Superior glenoid labrum lesion of unspecified shoulder, initial encounter Category: Medical Plan: MR arthrogram Orders: Orders MR shoulder RT w con Today M24.811 - Other specific joint derangements of right shoulder, not elsewhere classified, S43.439A - Superior glenoid labrum lesion of unspecified shoulder, initial encounter FL arthrogram shoulder RT Today M24.811 - Other specific joint derangements of right shoulder, not elsewhere classified, S43.439A - Superior glenoid labrum lesion of unspecified shoulder, initial encounter Coding Level of Care Code Est Pt Level 3 (90791) Diagnoses Internal derangement of right shoulder M24.811 SLAP (superior glenoid labrum lesion) S43.439A
--- OUTSIDE RECORDS SUMMARY | 2025-05-15 17:53 | XMS_ITS | Clinical Summary ---
Author Organization [facility] Address [address] [place] [address] Phone Care Team Providers Care Hand Bunch Maker Name Role Phone Pati Perdue Primary Care Provider [phone] Social History Tobacco Use Types Packs/Day Years Used Date Smoking Tobacco: Never Assessed Education Answer Date Recorded Are you interested in more education? Not on nancy e 05/08/2025 Are you concerned about learning? Not on file 05/08/2025 No 05/08/2025 No 05/08/2025 Digital Access Answer Date Recorded No 05/08/2025 No 05/08/2025 Reliable internet access at home? Not on file 05/08/2025 Device with a working camera? Not on file Sex and Gender Information Value Date Recorded Sex Assigned at Not on file Legal Sex Male 2:37 PM EST Gender Identity Not on file Sexual Orientation Not on file Plan of Treatment Upcoming Encounters Date Type Department Care Team (Late st Contact Info) Description 05/25/2025 11:00 AM EST Office Visit [facility] [address] [place] [address] Lolita Cleaning PA [address] [place] [address], [address] [address] Health Maintenance Due Date Last Done Comments Adult Td,Tdap Booster 1994 DEPRESSION SCREENING 2006 SMOKING Hx and SMOKELESS TOB ACCO SCREENING 2007 HEPATITIS C SCREENING 2012 HIV ONE-TIME SCREENING (18-6 5 YEARS) 2012 INFLUENZA VACCINE (#1) 2025 COVID-19 VACCINE (2024-2 6 season) 2025 HEPATITIS A VACCINES Aged Out No long er eligible based on patient's age to complete this topic HIB VACCINES Aged Out No longer eligi ble based on patient's age to complete this topic MENINGOCOCCAL VACCINES (ACWY) Aged Out No longer eligible based on patient's age to complete this topic MENINGOCOCCAL VACCINES (B) Aged Out N o longer eligible based on patient's age to complete this topic PNEUMOCOCCAL VACCINES (0-49 years) Aged Out No longer eligible based on patient's age to complete this topic Medical Devices Not on file [place] [address] [place] [address] [place] [address] [facility] Care Teams Hand Bunch Maker Relationship Specialty Start Date End Date Pati Perdue PA [address] [place] [address] PCP - General Physician Internet Specialist 05/08/25 Additional Source Comments The information contained in this document represents components of the legal health record. It is not the complete legal health record.[facility]
== END 2025-05-15 15:15 | disposition home or self-care (01) ==
LOC: HO.HOS 14:36
PROVIDERS: PCP Physician Assistant; Visit Provider Orthopaedic Surgery
DX: M24.811 Other specific joint derangements of right shoulder, not elsewhere classified (principal); S43.431A Superior glenoid labrum lesion of right shoulder, initial encounter
CPT/HCPCS: 99213

== ENCOUNTER → 2025-05-15 14:34 | Outpatient (BNVA) | payer OTHER, SELFPAY | PROVIDERS: PCP Physician Assistant; Visit Provider Orthopaedic Surgery | DX: M24.811 Other specific joint derangements of right shoulder, not elsewhere classified (principal); S43.439A Superior glenoid labrum lesion of unspecified shoulder, initial encounter | CPT/HCPCS: 99212 ==

== ENCOUNTER 2025-05-24 10:12 | Outpatient (AMB) | payer OTHER, SELFPAY ==
--- NOTE | 2025-05-24 10:31 | MHC.PC.OV ---
Vital Signs 05/24/25 10:48 Height 5 ft 5 in Weight 162 lb BMI 27.0 BP 110/72 Blood Pressure Location Rt brachial Position Sitting Respiration 12 Pulse 70 Pulse Source Pulse Oximeter Pulse Oximetry (%) 97 Oxygen Delivery Method Room Air Intake Visit Reasons: CPE Intake Note: Physical. Needs referral to plastic surgery for lip lesion. Originally ordered by [facility], but pt needs an insurance referral from . [address] in [place]. Appt is 08/14/2025. Computer Mechanic Required: No Allergies No Known Allergies Allergy (Verified 05/15/25 14:37) Medication List - Last Reconciled 05/24/25 by Pati Perdue PA-C No Known Home Meds Tobacco use date assessed: 05/24/25 Dental Screening Dental Screen Date: 05/24/25 Did you have a dental visit in the last 12 months?: Yes Did you have a dental problem in the last 6 months where you did not have access to dental care?: No Was dental information given to patient?: Patient has dentist HPI CPE HPI Details Patient is a 29-year-old male who presents today for a cpe. No acute concerns today. Musculoskeletal: Followed with ortho for right knee pain, lumbar pain, right hip pain (improved), and right shoulder pain. GI: Sx resolved. Neuro: He did have a normal MRI. He states that his headaches are a bit better now and less frequent. Psych: Was referred to behavioral health and does have an upcoming appointment. No SI/HI. He does have a 3-month-old baby boy at home and they are overall doing well. Baby is not yet sleeping through the night which is tiring but patient states that the baby does not cry much. PFSH Family History Father Diabetes Social History Housing: Apartment Patient Tobacco Use Status: Never used Tobacco e-Cigarette/Vaping Use: Never Used Second Hand Smoke Exposure: No service: Yes Current occupational status: employed Current occupation: [employer] Current occupational exposures/hazards: No Cognitive needs: No Hearing needs: No Vision needs: No Questionnaire PHQ-9 Over the last 2 weeks, how often have you been bothered by any of the following problems? 1. Little interest or pleasure in doing things: not at all 2. Feeling down, depressed, or hopeless: not at all 3. Trouble falling or staying asleep, or sleeping too much: several days 4. Feeling tired or having little energy: not at all 5. Poor appetite or overeating: not at all 6. Feeling bad about yourself - or that you are a failure or have let yourself or your family down: not at all 7. Trouble concentrating on things, such as reading the newspaper or watching television: not at all 8. Moving or speaking so slowly that other people could have noticed. Or the opposite - being so fidgety or restless that you have been moving around a lot more than usual: not at all 9. Thoughts that you would be better off or of hurting yourself in some way: not at all Total score: 1 Depression Screening Interpretation: Negative Depression Screening Done: Yes 05147 - PHQ-9 Billing: Yes Source: Developed by Drs. Eugenio Sim, Maria Fernanda Best, Xavier Abdi and colleagues, with an educational mae from [employer]. Thrive Questionnaire Date Thrive assessed: 05/24/25 I am a: Patient What is your living situation today?: I have a steady place to live Within the past 12 months, did the food you bought not last and you didn't have the money to get more?: Never true Within the past 12 months, did you worry whether your food would run out before you got money to buy more?: Never true Do you have trouble paying for medicines?: No Do you have trouble getting transportation to medical appointments?: No Do you have trouble paying your heating and electricity bill?: No Do you have trouble taking care of your child, family member or friend?: No Do you have trouble with day-to-day activities such as bathing, preparing meals, shopping, managing finances, etc.?: No Are you currently unemployed and looking for a job?: No Are you interested in more education?: No Please select the resources that you would like help with: None Currently or been in a relationship where the following occur: No concerns reported THRIVE Score: 0 AUDIT C Alcohol Use Questionnaire (AUDIT-C) 1. How often do you have a drink containing alcohol?: Monthly or less 2. How many drinks containing alcohol do you have on a typical day when you are drinking?: 1 or 2 3. How often do you have six or more drinks on one occasion?: Never Total Score: 1 Score Reviewed/Action Taken: Yes LENNY-7 AMB Questionnaire LENNY-7 Date LENNY - 7 assessed: 05/24/25 Feeling nervous, anxious, or on edge: 0 = Not at all Not being able to stop or control worryin = Not at all Worrying too much about different things: 0 = Not at all Trouble relaxin = Not at all Being so restless that it is hard to sit still: 0 = Not at all Becoming easily annoyed or irritable: 0 = Not at all Feeling afraid as if something awful might happen: 0 = Not at all Total LENNY-7 score (0-4 normal; 5-9 mild; 10-14 moderate; 15-21 severe): 0 Source: Developed by Drs. Eugenio Sim, Maria Fernanda Best, Xavier Abdi and colleagues, with an educational mae from [employer]. LENNY-7 Assessment Billing LENNY-7 Assessment Tool: LENNY-7 Assessment 87637 Physical exam (Primary Care) Vital Signs: Last Vital Signs Pulse 70 05/24/25 10:48 Resp 12 05/24/25 10:48 BP 110/72 05/24/25 10:48 Pulse Ox 97 05/24/25 10:48 Oxygen Delivery Method Room Air 05/24/25 10:48 BMI result Body Mass Index 27.0 Tobacco/Smoking Status: Tobacco use Status Tobacco use date assessed 05/24/25 05/24/25 10:51 Patient Tobacco Use Status Never used Tobacco 05/24/25 10:31 e-Cigarette/Vaping Use Never Used 05/24/25 10:31 PHQ-9: PHQ-9 Score PHQ-9: Total score 1 05/24/25 11:36 Depression Screening Interpretation: Negative Thrive Assessment: Date of Thrive Assessment Date Thrive assessed 05/24/25 05/24/25 10:51 Currently or been in a relationship where the following occur: No concerns reported Const Orientation/consciousness: patient oriented x3 HENMT Ears: hearing grossly normal bilaterally General nose exam: No nasal polyps present Face and sinus: Yes sinuses nontender Mouth: Normal oral and palatal mucosa present Eyes Pupils: Equal, round and reactive pupils present EOM: EOMs intact bilaterally Neck Neck: Yes full ROM and Yes no lymphadenopathy Thyroid: Thyroid normal Lymphatic: no lymphadenopathy noted Chest Chest palpation & inspection: normal inspection of the chest Resp Auscultation: clear to auscultation bilaterally Cardio Rate: regular rate Rhythm: regular rhythm Heart sounds: S1 normal heart sound present and S2 normal heart sound present Peripheral pulses: Peripheral pulses 2+ throughout GI Other: Soft, nontender Inspection: Yes normal to inspection Palpation (GI): Soft to palpation and Other GI palpation findings present (nontender, no cva tenderness) Auscultation: normoactive bowel sounds Rectal Exam - Male: Yes deferred General: Yes no CVA tenderness Back/Spine/Pelvis Other: Nontender Back: no CVA tenderness Skin General skin exam: no rashes or lesions noted Neuro General: patient oriented x3, gait normal and no focal motor deficits Cranial nerves: Yes Equal, round and reactive pupils present Motor exam (neuro): 5/5 motor strength present throughout Sensory Exam: double simultaneous stimulation for sensation normal Coordination: [id number] test normal and Romberg test negative Extrem General: Yes normal to inspection and Yes full ROM Psych Affect: normal affect Attitude: cooperative Thought process: Normal thought process present Thought content: Normal thought content present Insight: Good insight present (Psych) Judgement: Good judgement present (Psych) Coding Level of Care Code Est Pt Prev Care 18-39y(38715) Add On Preventative Visit Only Diagnoses Routine general medical examination at a health care facility Z00.00 Right shoulder pain M25.511 Lip lesion K13.0 Additional Codes LENNY-7 Assessment Billing - LENNY-7 Assessment Tool: LENNY-7 Assessment 03526 ([id number]) PHQ-9 - 43089 - PHQ-9 Billing: Yes ([id number]) Assessment & Plan Assessment & Plan (1) Routine general medical examination at a health care facility: Code(s): Z00.00 - Encounter for general adult medical examination without abnormal findings Plan: Health maintenance reviewed Labs ordered We will follow up pending test results (2) Right shoulder pain: Code(s): M25.511 - Pain in right shoulder Category: Medical Plan: Following with ortho (3) Lip lesion: Code(s): K13.0 - Diseases of lips Category: Medical Plan: Saw derm last year but the symptoms never resolved. Recommended referral to [facility] Plastic surgery. States that he has an appointment scheduled and needs an insurance referral. Referral placed today. Orders: Orders Comprehensive [place]. Panel Fast Today K13.0 - Diseases of lips, M25.511 - Pain in right shoulder, R51.9 - Headache, unspecified, Z00.00 - Encounter for general adult medical examination without abnormal findings Complete Blood Count Auto Diff Today K13.0 - Diseases of lips, M25.511 - Pain in right shoulder, R51.9 - Headache, unspecified, Z00.00 - Encounter for general adult medical examination without abnormal findings Lipid Panel Today K13.0 - Diseases of lips, M25.511 - Pain in right shoulder, R51.9 - Headache, unspecified, Z00.00 - Encounter for general adult medical examination without abnormal findings TSH reflex Free T4 Today K13.0 - Diseases of lips, M25.511 - Pain in right shoulder, R51.9 - Headache, unspecified, Z00.00 - Encounter for general adult medical examination without abnormal findings UA CC w/rflx Micro + Cult Today K13.0 - Diseases of lips, M25.511 - Pain in right shoulder, R30.0 - Dysuria, R51.9 - Headache, unspecified, Z00.00 - Encounter for general adult medical examination without abnormal findings Referrals Plastic Surgery Referral K13.0 - Diseases of lips
[2025-05-24 10:48] VITALS: BP 110/72; PULSE 70; RESP 12; O2SAT 97; BMI 27.0
== END 2025-05-24 11:15 | disposition home or self-care (01) ==
LOC: HO.HMCFM 10:13
PROVIDERS: PCP Physician Assistant; Visit Provider Physician Assistant
DX: Z00.00 Encounter for general adult medical examination without abnormal findings (principal); M25.511 Pain in right shoulder; K13.0 Diseases of lips

== ENCOUNTER → 2025-05-24 10:12 | Outpatient (BNVA) | payer OTHER, SELFPAY | PROVIDERS: PCP Physician Assistant; Visit Provider Physician Assistant | DX: Z13.31 Encounter for screening for depression (principal); Z13.39 Encounter for screening examination for other mental health and behavioral disorders | CPT/HCPCS: 96127 ==